=== PATIENT | female | born 1955 | race African-American/Black ===

== ENCOUNTER → 2016-09-04 | Outpatient (CLI) | payer MEDICARE, OTHER ==
[~2016-09-04] MED LIST: BACLOFEN10 MG ORAL; CAPTOPRIL50 MG PO; CARBAMAZEPINE300 MG ORAL; MAXZIDE 75 MG-1 EACH PO; NEURONTIN300 MG ORAL; NORCO 10-325 T1 EACH ORAL; VALIUM10 MG ORAL
--- NOTE | 2016-09-04 13:35 | Diagnostic Imaging Report ---
Indications: Abnormal liver function tests Technique: Transabdominal real-time grayscale and duplex Doppler imaging of the upper abdomen and retroperitoneum was performed. Findings: Comparison: None. Liver normal size and surface contour, diffusely increased parenchymal echogenicity. Focal area of relatively decreased echogenicity adjacent to gallbladder fossa. No other focal findings. Gallbladder unremarkable. No intraluminal stones or sludge. No mural thickening or adjacent fluid collections. Sonographic [place] sign not reported.. Bile ducts normal caliber. Common bile duct 4 mm. Pancreas visualized portions unremarkable. Spleen unremarkable. Right kidney unremarkable. Left kidney unremarkable. Abdominal aorta, intrahepatic portion of inferior vena cava patent, normal caliber. Duplex Doppler imaging demonstrates antegrade flow in splenic, portal, hepatic veins. No ascites. IMPRESSION: Hepatic steatosis with focal sparing adjacent to gallbladder fossa Remainder of exam unremarkable.
== END | disposition home or self-care (01) ==
LOC: ULS 10:14
DX: R79.89 Other specified abnormal findings of blood chemistry (principal); K76.0 Fatty (change of) liver, not elsewhere classified
CPT/HCPCS: 76700

== ENCOUNTER → 2016-11-20 | Outpatient (CLI) | payer MEDICARE, OTHER ==
--- NOTE | 2016-11-21 16:44 | Diagnostic Imaging Report ---
Indication: MASS Technique: Bilateral craniocaudal and mediolateral oblique views. Focused ultrasound of the left breast Comparison: 01/21/26 seen unilateral mammogram, 06/13/2015 bilateral mammogram Findings: The breasts demonstrate scattered fibroglandular densities. The areas of architectural distortion previously described in the right breast have been worked up, are less conspicuous currently, previously thought to be benign. Asymmetric parenchymal density in the left breast is less conspicuous currently, with also previously worked up and thought to be benign. Ovoid 9 mm asymmetry in the retroareolar left breast immediately lateral to midline remains stable. This is also demonstrated again on ultrasound, manifested is a 6 x 4 mm hypoechoic nodule which appears unchanged from the earlier exams. Impression: Stable left breast retroareolar nodule. One additional short interval six-month followup left breast mammogram and sonogram is recommended No new findings suspicious for malignancy BI-RADS category 3-probably benign Breast density BI-RADS type B. Note that the patient reports on the intake worksheet a history of constant breast pain. No imaging findings to explain this. Recommend further evaluation based on clinical findings
== END | disposition home or self-care (01) ==
LOC: MAMMO 12:57
DX: N63 Unspecified lump in breast (principal)
CPT/HCPCS: 76641; G0204; 77066

== ENCOUNTER 2017-01-16 05:41 | Inpatient (IN) | payer MEDICARE, OTHER ==
[2017-01-16] VITALS (18 sets, daily range): BP systolic 118–153; BP diastolic 63–84
[~2017-01-16] VITALS: Ht 162.6 cm; Wt 85.7 kg
[~2017-01-16 05:41] MED LIST changes: +cefOXitin Sod 2 GM in D5W 110 ML IVPB ONE
[2017-01-16] MEDS ORDERED: ZANTAC150 MG ORAL (06:53)
[2017-01-16] MEDS ORDERED: SIMETHICONE80 MG ORAL (06:53)
[2017-01-16] MEDS ORDERED: OMEPRAZOLE40 M1 ORAL (06:53)
[2017-01-16] MEDS ORDERED: METOPROLOL SUCC25 MG ORAL (06:53)
[2017-01-16] MEDS ORDERED: Ropivacaine 5mg/ml Vial 20ml INJ ONE (07:00)
[2017-01-16] MEDS ORDERED: cefOXitin 2gm Inj ONE (07:23)
[2017-01-16] MEDS ORDERED: fentaNYL 250mcg/5ml ONE (07:30)
[2017-01-16] MEDS ORDERED: Dexamethasone 4mg/ml vial ONE (07:30)
[2017-01-16] MEDS ORDERED: Metoclopramide 10mg/2ml Inj ONE (07:30)
[2017-01-16] MEDS ORDERED: Propofol 10mg/ml 20ml IV ONE (07:30)
[2017-01-16] MEDS ORDERED: Nimbex 2mg/ml Inj 10ML IVP ONE (07:30)
[2017-01-16] MEDS ORDERED: Lidocaine 1% MPF 10mg/ml 5ml ONE (07:30)
[2017-01-16] MEDS ORDERED: LR 1000ml ONE (07:30)
[2017-01-16] MEDS ORDERED: Midazolam 2mg/2ml Inj ONE (07:30)
[2017-01-16] MEDS ORDERED: NS Irrig 1000ml ONE (07:30)
[2017-01-16] MEDS ORDERED: Sterile Water Irrig 1000ml IRRIG ONE (07:30)
--- NOTE | 2017-01-16 07:33 | Pre-Procedure Note/Attestation ---
Pre-Procedure Note/Attestation Complete Prior to Procedure Planned Procedure: not applicable Procedure Narrative: Supracervical Hysterectomy, Bilateral Hysterectomy Indications for Procedure Pre-Operative Diagnosis: Uterine Fibroids Attestation I attest that I discussed the nature of the procedure; its benefits; risks and complications; and alternatives (and the risks and benefits of such alternatives ), prior to the procedure, with the patient (or the patient's legal sales representative consultant). I attest that, if there was a reasonable possibility of needing a blood transfusion, the patient (or the patient's legal sales representative consultant) was given the [facility] standardized written summary, pursuant to the [place] Blood Safety Act ([place] Health and Safety Code # 1645, as amended). I attest that I re-evaluated the patient just prior to the surgery and that there has been no change in the patient's H&P, except as documented below:NONE SHARITA ANGEL Jan 16, 2017 07:33
--- NOTE | 2017-01-16 07:49 | Short Stay Surgery H&P ---
History of Present Illness History of Present Illness HPI Renard Leon is a 61 year old female who was admitted on Jan 16, 2017 at 05:41 for Uterine Fibroids Patient experiences uterine cramping due to submucosal fibroid History of Maternal Ovarian CA Patient History Allergies: Uncoded Allergies: BANANAS (Allergy, Unknown, Rash, 10/24/15) PAST MEDICAL HISTORY: Past Surgeries: (1) delivery delivered Social History: Medication History Scheduled Metoprolol Succinate* (Metoprolol Succinate*), 25 MG ORAL DAILY, (Reported) Omeprazole (Omeprazole), 40 MG ORAL DAILY, (Reported) Ranitidine Hcl* (Zantac*), 150 MG ORAL DAILY, (Reported) Scheduled PRN Diazepam* (Valium*), 10 MG ORAL TWICE A WEEK PRN for ANXIETY, (Reported) Hydrocodone Bit/Acetaminophen 10-325* ([place] 10-325*), 1 TAB ORAL NEED PRN for For Pain, (Reported) Simethicone* (Simethicone*), 80 MG ORAL BID PRN for GAS PAIN, (Reported) Discontinued Medications Baclofen* (Baclofen*), 10 MG ORAL DA, (Reported) Discontinued Reason: Pt stopped taking med Captopril (Captopril), 50 MG PO, (Reported) Discontinued Reason: MD discontinued med Carbamazepine (Carbamazepine), 200 MG ORAL DA, (Reported) Discontinued Reason: MD discontinued med Gabapentin (Neurontin), 300 MG ORAL QOD, (Reported) Discontinued Reason: Pt stopped taking med Triamterene/Hydrochlorothiazid (Maxzide 75 Mg-50 Mg Tablet), 0.5 EACH PO DAILY, (Reported) Discontinued Reason: MD discontinued med Review of Systems Cardiovascular: Denies: CABG, CAD - stable, CHF, SC, angina, dysrhythmia, hypertension, no symptoms, other, peripheral vascular disease, rheumatic heart disease, see HPI, source of infx - skin, source of infx-indw cath, source of infx-prosthesis, valvular disease Respiratory: Denies: COPD, CPAP, URI, asthma, chronic bronchitis, home 02, no symptoms, other, pneumonia, see HPI, sleep apnea, tuberculosis Skeletal: Reports: osteroarthritis, spinal disc disease Gastrointestinal: Denies: gastro esophageal reflux disease, hepatitis A,B,C, hiatal hernia, jaundice, no symptoms, obesity, other, peptic ulcer disease, see HPI Genitourinary: Denies: BPH, UTI, dialysis, endstage renal disease, no symptoms , other, renal insufficiency, see HPI, urinary retention Neurologic: Denies: neuro muscular disease, neuropathy, no symptoms, other, see HPI, seizure, stroke/TIA Endocrine: Reports: diabetes - type 1, diabetes - type 2, no symptoms, other, post menopausal - Reports hot flashes for the last several months, see HPI, thyroid Hematologic: Denies: anemia, coagulopathy, no symptoms, other, prior transfusion, see HPI Physical Exam Vital Signs Last Vital Signs Date Time Temp Pulse Resp B/P Pulse Ox O2 Delivery O2 Flow Rate FiO2 01/16/17 06:55 97.2 60 18 134/78 Room Air EKG WNL Skin: normal HENT: normal Heart: normal Lungs: normal Abdomen: normal Extremities: normal Genitourinary: abnormal - Enlarged Uterus Plan Plan of Care Supracervical Hysterectomy, BSO Summary of Findings Submucosal Fibroid, Uterine Cramping, History of maternal Ovarian Cancer Final Diagnosis: Attestation Are the patient's medical conditions optimized for surgery? Attestation Response: yes SHARITA ANGEL Jan 16, 2017 07:49
[2017-01-16] MEDS ORDERED: LR 1000ml 1,000 ML IVLG SCH (08:08)
--- NOTE | 2017-01-16 08:08 | Anethesia Preoperative Eval ---
Anesthesia Pre-op PMH/ROS General Date of Evaluation: Jan 16, 2017 Anesthesiologist: Vignesh ASA Score: ASA 2 Mallampati Score Class I : Soft palate, uvula, fauces, pillars visible Class II: Soft palate, uvula, fauces visible Class III: Soft palate, base of uvula visible Class IV: Only hard plate visible Mallampati Classification: Class II Surgeon: Patricia Diagnosis: Uterine fibroids Surgical Procedure: Supracervical hysterectomy Anesthesia History: none Social History: current smoker - cigarettes and marijuana Family History: no anesthesia problems Allergies: Uncoded Allergies: BANANAS (Allergy, Unknown, Rash, 10/24/15) Medications: see eMAR Past Medical History Cardiovascular: Reports: HTN, arrhythmia - irregular heartbeat as per patient, Denies: CAD, [place], other, valve dz Pulmonary: Denies: COPD, DOV, asthma, other Gastrointestinal/Genitourinary: Reports: GERD, Denies: CRI, ESRD, other Neurologic/Psychiatric: Reports: depression/anxiety, Denies: CVA, TIA, dementia, other Endocrine: Denies: DM, hypothyroidism, other, steroids HEENT: Denies: [place] (L), [place] (R), cataract (L), cataract (R), glaucoma, other Hematology/Immune: Denies: DVT, anemia, bleeding disorder, other Musculoskeletal/Integumentary: Reports: other - LBP, sciatica, Denies: DDD, DJD, OA, RA, edema PSxH Narrative: c/s, right shoulder sx Anesthesia Pre-op Phys. Exam Physician Exam Last Vital Signs Date Time Temp Pulse Resp B/P Pulse Ox O2 Delivery O2 Flow Rate FiO2 01/16/17 06:55 97.2 60 18 134/78 Room Air Constitutional: NAD Cardiovascular: RRR Respiratory: CTA Airway Exam Mallampati Score: Class I MO: full ROM: full Teeth: intact - bottoms Dentures: upper Anesthesia Pre-op A/P Labs see chart Studies Pre-op Studies: EKG - sr Risk Assessment & Plan Assessment: ASA II Plan: GA-ETT Status Change Before Surgery: No Pre-Antibiotics Drug: Cefoxitin 2g Given Within 1 Hr of Incision: Yes Time Given: 07:45 SHIVAM PEDRO M.D. Jan 16, 2017 08:08
[2017-01-16] MEDS ORDERED: NS Irrig 1000ml IRRIG ONE (08:14)
[2017-01-16] MEDS ORDERED: fentaNYL 100 mcg/2 mL IV PRN (08:15)
[2017-01-16] MEDS ORDERED: Metoclopramide 10mg/2ml Inj IVP PRN (08:15)
[2017-01-16] MEDS ORDERED: Midazolam 2mg/2ml Inj IVP PRN (08:15)
[2017-01-16] MEDS ORDERED: Ketorolac 30mg Inj IV PRN (08:15)
[2017-01-16] MEDS ORDERED: LORazepam Inj 2mg/ml 1ml IV PRN (08:15)
[2017-01-16] MEDS ORDERED: DiphenhydrAMINE 50mg/ml Inj IVP PRN (08:15)
[2017-01-16] MEDS ORDERED: Surgicel 4in x 8in TOPIC ONE (08:59)
--- NOTE | 2017-01-16 10:07 | Immediate Post-Op Evaluation ---
Immediate Post-Op Evalulation Immediate Post-Op Evalulation Procedure: Supracervical hysterectomy with BSO Date of Evaluation: Jan 16, 2017 Time of Evaluation: 10:04 IV Fluids: 1.6L Blood Products: 0 Estimated Blood Loss: 100 Urinary Output: 300 Blood Pressure Systolic: 153 Blood Pressure Diastolic: 78 Pulse Rate: 76 Respiratory Rate: 16 O2 Sat by Pulse Oximetry: 99 Temperature (Fahrenheit): 97.8 Pain Score (1-10): 0 Nausea: No Vomiting: No Complications 0 Patient Status: awake, reacts, patent, none Hydration Status: adequate Drug: Cefoxitin 2g Given Within 1 Hr of Incision: Yes Time Given: 07:45 SHIVAM PEDRO M.D. Jan 16, 2017 10:07
--- NOTE | 2017-01-16 10:32 | Brief Operative Note ---
Immediate Post Operative Note Operative Note Pre-op Diagnosis: Uterine Fibroids Procedure: Supracervical Hysterectomy, BSO Post-op Diagnosis: same as pre-op Surgeon: Sharita Angel MD Weeder Thinner: Nithya Oscar MD Anesthesiologist: Victorino Gillette MD Anesthesia: general Specimen: yes - Uterus, Ovaries and Tubes Complications: none Condition: stable Fluids: LR@100 CC/hr Estimated Blood Loss: volume - 200 CC Implant(s) used?: No SHARITA ANGEL Jan 16, 2017 10:32
[2017-01-16] MEDS: Hydromorphone 0.5mg/0.5ml inj IVP PRN ×2 (11:17→13:00)
--- NOTE | 2017-01-16 13:00 | Operative Note - Dictated ---
DATE OF OPERATION: 01/16/2017 PREOPERATIVE DIAGNOSES: 1. Uterine fibroid. 2. Uterine cramping. 3. Maternal history of ovarian cancer. POSTOPERATIVE DIAGNOSES: 1. Uterine fibroid. 2. Uterine cramping. 3. Maternal history of ovarian cancer. PROCEDURE PERFORMED: Supracervical hysterectomy, bilateral salpingo-oophorectomy. SURGEON: Randall Gomez M.D. GI TECHNICIAN SURGEON: Nithya Oscar M.D. ANESTHESIA: General endotracheal. ANESTHESIOLOGIST: Halina Gillette M.D. PROCEDURE IN DETAIL: After all the appropriate consents were signed, the patient was brought to the operative room, placed on the table in supine position. Procedure then began with making a Pfannenstiel incision. The incision was carried through subcutaneous tissue until the fascia was reached. The fascial incision was also made and extended bilaterally to expose the rectus muscle. The muscle was reflected both inferiorly and superiorly to expose the peritoneum. Peritoneum was entered sharply and bowel could be identified with uterus being deep in the pelvis. There were some adhesions along the left side of the uterus. At this time, a self-retaining retractor was placed and bowel was packed. The procedure began with elevating the uterus from pelvis and right round ligament was clamped, cut, and suture ligated. The broad ligament was incised and the bladder flap was developed. There were some additional adhesions in the bladder and additional reflection of the bladder, which needed to be adhesiolysed and after that was completed, the procedure continued on the left side where the round ligament could not be fully visualized. At this time, adhesiolysis was required to visualize the round ligament. Once this was completed, rounds were clamped, cut, and suture ligated. The procedure continued with developing of the bladder flap on the left side and entire bladder was pushed down the cervix to visualize the area of the uterine vessels. The uterines were clamped, cut, and suture ligated. The procedure then continued with progression of the removing of ligaments. The cardinal ligaments were clamped, cut, and suture ligated bilaterally exposing the cervix. At this time, the cervix was now cut and the uterus was removed from the field to be submitted to pathology for evaluation. The patient was now once again evaluated and the left tube and ovary were still attached to the left pelvic sidewall. The ovary was elevated and the infundibulopelvic ligament was clamped, cut, and suture ligated doubly. At this time, the pelvis was irrigated. Complete hemostasis was achieved in the pelvis. The self-retaining retractor was removed. Laps were removed from the abdomen and lap count was correct. The peritoneum was now closed using #0 Vicryl suture in a running fashion. The muscle was approximated in the midline. The fascia was closed using #0 Vicryl suture bilaterally. Plain suture was placed in the subcutaneous tissue to approximate at the midline. The skin was closed using stainless steel andrea. Randall Gomez M.D. DR: STEFF JOB#: [id number] CC:
[2017-01-16] MEDS ORDERED: Rate Change PCA 1 Each MISC PRN ×3 (14:30→15:00)
[2017-01-16] MEDS ORDERED: PCA HYDROmorphone 1mg/ml 30 ML IV PRN (14:30)
[2017-01-16] MEDS: LR 1000ml 1,000 ML IV SCH (15:23)
[2017-01-16] MEDS ORDERED: PCA shift volume MISC SCH ×2 (19:00)
[2017-01-16] MEDS: PCA shift volume MISC SCH (19:14)
[2017-01-17] VITALS: BP 126/65
[2017-01-17] MEDS: LR 1000ml 1,000 ML IV SCH ×3 (01:54→20:00)
[2017-01-17 04:00] VITALS: BP 117/58
[2017-01-17 06:39] LABS: BASOPHILS % (AUTO) 0.4 % (0.0-2.0); EOSINOPHILS % (AUTO) 0.1 % (0.0-3.0); LYMPHOCYTES % (AUTO) 20.4 % (20.0-45.0); MEAN CORPUSCULAR HEMOGLOBIN 34.4 PG (27.0-31.0); MEAN CORPUSCULAR HGB CONC 33.9 G/DL (32.0-36.0); MEAN CORPUSCULAR VOLUME 102 FL (80-99); MEAN PLATELET VOLUME 9.2 FL (6.5-10.1); MONOCYTES % (AUTO) 12.1 % (1.0-10.0); NEUTROPHILS % (AUTO) 67.1 % (45.0-75.0); PLATELET COUNT 162 K/UL (150-450); RED BLOOD COUNT 3.04 M/UL (4.20-5.40); RED CELL DISTRIBUTION WIDTH 12.8 % (11.6-14.8); WHITE BLOOD COUNT 10.9 K/UL (4.8-10.8)
[2017-01-17 06:47] LABS: ANION GAP 12 (5-15); CALCIUM 8.9 mg/dL (8.6-10.2); CARBON DIOXIDE 27 mEQ/L (20-30); CHLORIDE 97 mEQ/L (98-107); CREATININE 0.8 mg/dL (0.5-0.9); GLOMERULAR FILTRATION RATE > 60 mL/min (>60); HEMOLYSIS 3; MAGNESIUM 1.6 mg/dL (1.7-2.5); PHOSPHORUS 4.3 mg/dL (2.5-4.8); POTASSIUM 4.3 mEQ/L (3.4-4.9); SODIUM 136 mEQ/L (135-145)
[2017-01-17] MEDS: PCA shift volume MISC SCH (07:14)
[2017-01-17 08:00] VITALS: BP 118/59
[2017-01-17 08:26] LABS: IONIZED CALCIUM 1.18 mmol/L (1.10-1.35)
[2017-01-17] MEDS: Simethicone 80mg tab ORAL PRN ×2 (10:05→22:30)
[2017-01-17] MEDS ORDERED: Ketorolac 60mg Inj IM ONE (11:30)
[2017-01-17] MEDS ORDERED: Ketorolac 30mg Inj IV ONE (11:30)
[2017-01-17 12:00] VITALS: BP 142/75
[2017-01-17 16:00] VITALS: BP 142/78
[2017-01-17] MEDS: Ketorolac 30mg Inj IV SCH ×2 (17:25→23:36)
--- NOTE | 2017-01-17 18:24 | 48 Hour Post Anesthesia Eval ---
Post Anesthesia Evaluation Procedure: Supracervical hysterectomy with BSO Date of Evaluation: Jan 17, 2017 Time of Evaluation: 18:23 Blood Pressure Systolic: 142 0: 58 Pulse Rate: 72 Respiratory Rate: 22 Temperature (Fahrenheit): 97.6 O2 Sat by Pulse Oximetry: 98 Airway: patent Nausea: No Vomiting: No Pain Intensity: 3 Hydration Status: adequate Cardiopulmonary Status: stable Mental Status/LOC: patient returned to baseline Follow-up Care/Observations: n/a Post-Anesthesia Complications: none Follow-up care needed: N/A MAMIE GROSSMAN M.D. Jan 17, 2017 18:24
[2017-01-17] MEDS ORDERED: Norco 5mg/325mg tab ORAL PRN (19:45)
[2017-01-17] MEDS: Norco 10mg/325mg tab ORAL PRN (19:54)
[2017-01-17 20:00] VITALS: BP 158/69
[2017-01-18] MEDS: Zolpidem 5mg tab ORAL PRN (00:02)
[2017-01-18 00:25] VITALS: BP 140/79
[2017-01-18] MEDS: Norco 10mg/325mg tab ORAL PRN ×4 (03:59→22:18)
[2017-01-18] MEDS: LR 1000ml 1,000 ML IV SCH ×2 (06:23→15:21)
[2017-01-18] MEDS: Ketorolac 30mg Inj IV SCH ×4 (06:23→23:45)
[2017-01-18 06:40] VITALS: BP 118/68
[2017-01-18 08:00] VITALS: BP 115/58
[2017-01-18] MEDS: Docusate 100mg cap ORAL SCH ×3 (09:17→18:23)
[2017-01-18] MEDS: Simethicone 80mg tab ORAL PRN ×2 (11:14→18:23)
[2017-01-18 12:00] VITALS: BP 145/76
[2017-01-18 16:00] VITALS: BP 147/88
[2017-01-18] MEDS ORDERED: LR 1000ml ONE (18:08)
[2017-01-18 20:00] VITALS: BP 138/78
[2017-01-19] VITALS: BP 131/72
[2017-01-19] MEDS: Zolpidem 5mg tab ORAL PRN (00:57)
[2017-01-19] MEDS: LR 1000ml 1,000 ML IV SCH (02:11)
[2017-01-19] MEDS: Norco 10mg/325mg tab ORAL PRN ×4 (02:31→22:45)
[2017-01-19 04:00] VITALS: BP 150/83
[2017-01-19] MEDS: Ketorolac 30mg Inj IV SCH ×3 (05:28→17:30)
[2017-01-19 08:03] VITALS: BP 129/89
[2017-01-19] MEDS ORDERED: OMEPRAZOLE40 M1 ORAL (08:58)
--- NOTE | 2017-01-19 09:00 | Discharge Instructions ---
Discharge Instructions Discharge Instructions Follow up with: dr burgos Diet: 2 GM sodium (low sodium) Resume Normal Activity?: Yes Activity: light activity For Surgical Patients Clean and Dry: surgical site Dressing Care: keep dry and clean May shower: Yes Contact your physician for: bleeding, pain, tenderness, redness, yellowish discharge in the op. site For Congestive Heart Failure Reminder Report to your physician any weight gain of 5 pounds or more in one week. BHAVANI MCGINNIS Jan 19, 2017 09:00
--- NOTE | 2017-01-19 09:07 | General Surgery Progress Note ---
General Surgery-Progress Note Subjective Symptoms: pain same, voiding well, passing flatus Objective Last 24 Hour Vital Signs Date Time Temp Pulse Resp B/P Pulse Ox O2 Delivery O2 Flow Rate FiO2 01/19/17 08:03 97.8 71 20 129/89 96 Room Air 01/19/17 04:00 98.1 75 16 150/83 97 Room Air 01/19/17 00:00 97.7 19 131/72 98 Room Air 01/18/17 20:00 97.9 73 17 138/78 97 Room Air 01/18/17 16:00 98.1 81 20 147/88 99 Room Air 01/18/17 12:00 97.2 68 18 145/76 98 Room Air I&O Intake and Output 01/18/17 01/19/17 19:00 07:00 Intake Total 2040 ml 1420 ml Balance 2040 ml 1420 ml Intake Oral 840 ml 320 ml IV Total 1200 ml 1100 ml # Voids 3 3 # Bowel Movements 1 Wound: clean, intact Drains: none Cardiovascular: RSR Respiratory: clear Abdomen: soft Extremities: edema BHAVANI MCGINNIS Jan 19, 2017 09:07
--- NOTE | 2017-01-19 09:09 | Discharge Summary ---
Discharge Summary Hospital Course Date of Admission Jan 16, 2017 at 05:41 Date of Discharge 01/20/2017 Admitting Diagnosis symptomatic fibroids MARIOLA Leon is a 61 year old female who was admitted on Jan 16, 2017 at 05:41 for Uterine Fibroids Procedures hysterectomy Hospital Course voided/ ambulated/ passed gas Discharge Condition Upon Discharge: stable Discharge Disposition Patient was discharged to home Discharge Diagnoses: Discharge Instructions Discharge Instructions Follow up with: dr burgos Activity: light activity For Surgical Patients Clean and Dry: surgical site Dressing Care: keep dry and clean May shower: Yes Contact your physician for: bleeding, pain, tenderness, redness, yellowish discharge in the op. site BHAVANI MCGINNIS Jan 19, 2017 09:09
[2017-01-19] MEDS ORDERED: Metoprolol 25mg tab ORAL ONE (09:15)
[2017-01-19] MEDS: Docusate 100mg cap ORAL SCH ×3 (09:24→17:30)
[2017-01-19] MEDS: Simethicone 80mg tab ORAL PRN ×2 (12:19→22:43)
[2017-01-19 12:20] VITALS: BP 149/78
[2017-01-19 15:59] VITALS: BP 145/78
[2017-01-19 20:20] VITALS: BP 131/66
[2017-01-20] MEDS: Zolpidem 5mg tab ORAL PRN (00:05)
[2017-01-20] MEDS: Ketorolac 30mg Inj IV SCH ×3 (00:05→13:02)
[2017-01-20 00:39] VITALS: BP 133/71
[2017-01-20 04:22] VITALS: BP 130/75
[2017-01-20] MEDS: Norco 10mg/325mg tab ORAL PRN ×2 (05:01→08:57)
[2017-01-20 08:00] VITALS: BP 167/87
[2017-01-20] MEDS: Docusate 100mg cap ORAL SCH ×2 (08:56→13:03)
[2017-01-20 12:00] VITALS: BP 139/90
== END 2017-01-20 15:34 | disposition home or self-care (01) | DRG 743 ==
LOC: SDSOVERFLO 05:41 → 3E 14:00
PROC: 0UT70ZZ Resection of Bilateral Fallopian Tubes, Open Approach (ICD-10-PCS; principal; 2017-01-16 07:30)
PROC: 0UT20ZZ Resection of Bilateral Ovaries, Open Approach (ICD-10-PCS; principal; 2017-01-16 07:30)
PROC: 0UT90ZZ Resection of Uterus, Open Approach (ICD-10-PCS; principal; 2017-01-16 07:30)
DX: D25.0 Submucous leiomyoma of uterus (principal); E11.9 Type 2 diabetes mellitus without complications; M19.90 Unspecified osteoarthritis, unspecified site; F17.210 Nicotine dependence, cigarettes, uncomplicated
CPT/HCPCS: 36415; 80048; 82330; 83735; 84100; 85025; 86850; 86900; 86901; 87081; 94003; 94150; J2250; J2405; J2765

== ENCOUNTER 2017-08-15 13:40 | Inpatient (IN) | payer MEDICARE, OTHER ==
[~2017-08-15] VITALS: Ht 162.6 cm; Wt 89.4 kg
[~2017-08-15 13:40] MED LIST changes: +Ketorolac 30mg Inj IV PRN; +METOPROLOL SUCC25 MG ORAL; +OMEPRAZOLE40 M1 ORAL; +SIMETHICONE80 MG ORAL; +ZANTAC150 MG ORAL; -cefOXitin Sod 2 GM in D5W 110 ML IVPB ONE
[2017-08-15] MEDS ORDERED: Nitroglycerin Subl 0.4mg tab SL PRN ×2 (14:15→22:45)
[2017-08-15] MEDS ORDERED: LISINOPRIL20 MG ORAL (14:46)
[2017-08-15 15:07] VITALS: BP 156/81
[2017-08-15 15:12] LABS: BASOPHILS % (AUTO) 2.1 % (0.0-2.0); EOSINOPHILS % (AUTO) 1.3 % (0.0-3.0); HEMATOCRIT 42.3 % (37.0-47.0); HEMOGLOBIN 14.1 G/DL (12.0-16.0); LYMPHOCYTES % (AUTO) 47.3 % (20.0-45.0); MEAN CORPUSCULAR VOLUME 98 FL (80-99); MONOCYTES % (AUTO) 10.2 % (1.0-10.0); NEUTROPHILS % (AUTO) 39.1 % (45.0-75.0); PLATELET COUNT 207 K/UL (150-450); RED BLOOD COUNT 4.32 M/UL (4.20-5.40); RED CELL DISTRIBUTION WIDTH 12.9 % (11.6-14.8); WHITE BLOOD COUNT 5.6 K/UL (4.8-10.8)
[2017-08-15 15:17] LABS: ANION GAP 11 mmol/L (5-15); BLOOD UREA NITROGEN 12 mg/dL (7-18); CALCIUM 9.6 MG/DL (8.5-10.1); CARBON DIOXIDE 25 MMOL/L (21-32); CHLORIDE 104 MMOL/L (98-107); CREATININE 0.9 MG/DL (0.55-1.30); POTASSIUM 3.6 MMOL/L (3.5-5.1); SODIUM 140 MMOL/L (136-145)
--- NOTE | 2017-08-15 15:22 | Emergency Room Report ---
History of Present Illness General Chief Complaint: Chest Pain Source: Patient Present Illness HPI 62-year-old female presents ED complaining of chest pain x3 days. Midsternal, pressure, 7/10, with tingling sensation down the left arm. Denies shortness of breath. Had x-rays and blood work done a few days ago but she does not have results. Denies smoking or drug use. [employer] is Dr. Hanson. No other aggravating relieving factors. Denies any other associated symptom Allergies: Uncoded Allergies: BANANAS (Allergy, Unknown, Rash, 10/24/15) Patient History Past Medical History: HTN, CHF, GERD, psych hx Past Surgical History: none Pertinent Family History: none Social History: Denies: smoking, alcohol use, drug use Now: No Immunizations: UTD Reviewed Nursing Documentation: PMH: Agreed, PSxH: Agreed Nursing Documentation-PMH Past Medical History: No History, Except For Hx Cardiac Problems: Yes - CHF Hx Hypertension: Yes Hx Pacemaker: No Hx Asthma: No Hx COPD: No Hx Diabetes: No Hx Cancer: No Hx Gastrointestinal Problems: Yes - gastritis Hx Dialysis: No History Of Psychiatric Problem: Yes - Depression Hx Neurological Problems: No Hx Cerebrovascular Accident: No Hx Seizures: No Review of Systems All Other Systems: negative except mentioned in HPI Physical Exam Vital Signs Date Time Temp Pulse Resp B/P (MAP) Pulse Ox O2 Delivery O2 Flow Rate FiO2 08/15/17 13:43 98.8 74 15 198/105 95 Room Air Sp02 EP Interpretation: reviewed, normal General Appearance: no apparent distress, alert, GCS 15, non-toxic Head: normocephalic, atraumatic Eyes: bilateral eye normal inspection, bilateral eye PERRL ENT: hearing grossly normal, normal pharynx, no angioedema, normal voice Neck: full range of motion, supple/symm/no masses Respiratory: lungs clear, normal breath sounds, speaking full sentences, other - reproducible Cardiovascular #1: regular rate, rhythm, no edema Cardiovascular #2: 2+ carotid (R), 2+ carotid (L), 2+ radial (R), 2+ radial (L) , 2+ dorsalis pedis (R), 2+ dorsalis pedis (L) Gastrointestinal: normal bowel sounds, non tender, soft, non-distended, no guarding, no rebound Rectal: deferred Genitourinary: normal inspection, no CVA tenderness Musculoskeletal: back normal, gait/station normal, normal range of motion, non- tender Neurologic: alert, oriented x3, responsive, motor strength/tone normal, sensory intact, speech normal Psychiatric: judgement/insight normal, memory normal, mood/affect normal, no suicidal/homicidal ideation Reflexes: 3+ bicep (R), 3+ bicep (L), 3+ tricep (R), 3+ tricep (L), 3+ knee (R) , 3+ knee (L) Skin: normal color, no rash, warm/dry, well hydrated Lymphatic: no adenopathy Medical Decision Making Diagnostic Impression: Primary Impression: ACS (acute coronary syndrome) ER Course Hospital Course 62-year-old female presents ED complaining of left-sided chest pain, shortness of breath Differential diagnoses include: HI/unstable angina, contusion, muscle strain, PTX, rib fracture Clinical course Patient placed on stretcher. on manager pest. After initial history and physical I ordered labs, EKG, chest x-ray, NTG labs reviewed- no leukocytosis, hb/hct stable, electrolytes ok, trop negative EKG - NSR, no acute ischemic changes interpreted by me Chest x-ray- no acute process Patient states pain improved after nitroglycerin. Given presentation and risk factors patient should be admitted. discussed case with cardiology Dr Hanson and he agrees to admission given aspirin Case discussed with Dr. Mtz and he agreed to accept the patient to his service for further care and support I. I feel this is a highly complex case requiring extensive working including EKG/Rhythm strip, Xray/CT/US, Blood/urine lab work, repeat exams while in ED, and administration of strong opiates/narcotics for pain control, admission to hospital or close patient follow up. Diagnosis - ACS admitted to telemetry in serious condition Labs Test 08/15/17 14:30 08/15/17 15:52 White Blood Count 5.6 K/UL (4.8-10.8) Red Blood Count 4.32 M/UL (4.20-5.40) Hemoglobin 14.1 G/DL (12.0-16.0) Hematocrit 42.3 % (37.0-47.0) Mean Corpuscular Volume 98 FL (80-99) Mean Corpuscular Hemoglobin 32.5 PG (27.0-31.0) Mean Corpuscular Hemoglobin Concent 33.2 G/DL (32.0-36.0) Red Cell Distribution Width 12.9 % (11.6-14.8) Platelet Count 207 K/UL (150-450) Mean Platelet Volume 7.8 FL (6.5-10.1) Neutrophils (%) (Auto) 39.1 % (45.0-75.0) Lymphocytes (%) (Auto) 47.3 % (20.0-45.0) Monocytes (%) (Auto) 10.2 % (1.0-10.0) Eosinophils (%) (Auto) 1.3 % (0.0-3.0) Basophils (%) (Auto) 2.1 % (0.0-2.0) Sodium Level 140 MMOL/L (136-145) Potassium Level 3.6 MMOL/L (3.5-5.1) Chloride Level 104 MMOL/L (98-107) Carbon Dioxide Level 25 MMOL/L (21-32) Anion Gap 11 mmol/L (5-15) Blood Urea Nitrogen 12 mg/dL (7-18) Creatinine 0.9 MG/DL (0.55-1.30) Estimat Glomerular Filtration Rate > 60 mL/min (>60) Glucose Level 71 MG/DL (74-106) Calcium Level 9.6 MG/DL (8.5-10.1) Total Bilirubin 0.4 MG/DL (0.2-1.0) Aspartate Amino Transf (AST/SGOT) 79 U/L (15-37) Alanine Aminotransferase (ALT/SGPT) 80 U/L (12-78) Alkaline Phosphatase 78 U/L (46-116) Total Creatine Kinase 140 U/L (26-308) Creatine Kinase MB 1.9 NG/ML (0.0-3.6) Creatine Kinase MB Relative Index 1.3 Troponin I 0.000 ng/mL (0.000-0.056) Pro-B-Type Natriuretic Peptide 129 pg/mL (0-125) Total Protein 7.9 G/DL (6.4-8.2) Albumin 3.9 G/DL (3.4-5.0) Globulin 4.0 g/dL Albumin/Globulin Ratio 1.0 (1.0-2.7) Urine Opiates Screen Negative (NEGATIVE) Urine Barbiturates Screen Negative (NEGATIVE) Phencyclidine (PCP) Screen Negative (NEGATIVE) Urine Amphetamines Screen Negative (NEGATIVE) Urine Benzodiazepines Screen Negative (NEGATIVE) Urine Cocaine Screen Negative (NEGATIVE) Urine Marijuana (THC) Screen Positive (NEGATIVE) EKG Diagnostic Results Rate: normal Rhythm: NSR ST Segments: no acute changes ASA given to the pt in ED: Yes Rhythm Strip Diag. Results EP Interpretation: yes Rhythm: NSR, no PVC's, no ectopy Chest X-Ray Diagnostic Results Chest X-Ray Diagnostic Results : Chest X-Ray Ordered: Yes # of Views/Limited/Complete: 1 View Indication: Chest Pain EP Interpretation: Yes Interpretation: no consolidation, no effusion, no pneumothorax, no acute cardiopulmonary disease, other - cardiomegaly Impression: No acute disease Electronically Signed by: Electronically signed by Brian Chambers MD Last Vital Signs Date Time Temp Pulse Resp B/P (MAP) Pulse Ox O2 Delivery O2 Flow Rate FiO2 08/15/17 15:07 98.1 61 25 156/81 100 Room Air Status: improved Disposition: ADMITTED INPATIENT Condition: Serious BRIAN CHAMBERS M.D. Aug 15, 2017 15:22
[2017-08-15 15:31] LABS: ALANINE AMINOTRANSFERASE 80 U/L (12-78); ALBUMIN 3.9 G/DL (3.4-5.0); ALKALINE PHOSPHATASE 78 U/L (46-116); ASPARTATE AMINO TRANSFERASE 79 U/L (15-37); BILIRUBIN,TOTAL 0.4 MG/DL (0.2-1.0); CKMB 1.9 NG/ML (0.0-3.6); CREATINE KINASE 140 U/L (26-308)
--- NOTE | 2017-08-15 17:31 | Diagnostic Imaging Report ---
Indication: Pain Technique: XRAY Chest 1v Comparison: 10/30/2015 Findings: Heart size and mediastinal contours are likely within normal limits given technique and low lung volumes. There is no focal consolidation, pneumothorax or pleural effusion. Osseous structures demonstrate no acute abnormality. Impression: No radiographic evidence of acute cardiopulmonary disease.
--- NOTE | 2017-08-15 17:35 | Cardiology Progress Note ---
Assessment/Plan Assessment/Plan The patient is seen and examined, full consult note will be dictated shortly. Objective Last 24 Hour Vital Signs Date Time Temp Pulse Resp B/P (MAP) Pulse Ox O2 Delivery O2 Flow Rate FiO2 08/15/17 15:07 98.1 61 25 156/81 100 Room Air 08/15/17 14:30 172/86 08/15/17 13:45 74 15 Room Air 08/15/17 13:43 98.8 74 15 198/105 95 Room Air Laboratory Tests Test 08/15/17 14:30 08/15/17 15:52 White Blood Count 5.6 K/UL (4.8-10.8) Red Blood Count 4.32 M/UL (4.20-5.40) Hemoglobin 14.1 G/DL (12.0-16.0) Hematocrit 42.3 % (37.0-47.0) Mean Corpuscular Volume 98 FL (80-99) Mean Corpuscular Hemoglobin 32.5 PG (27.0-31.0) H Mean Corpuscular Hemoglobin Concent 33.2 G/DL (32.0-36.0) Red Cell Distribution Width 12.9 % (11.6-14.8) Platelet Count 207 K/UL (150-450) Mean Platelet Volume 7.8 FL (6.5-10.1) Neutrophils (%) (Auto) 39.1 % (45.0-75.0) L Lymphocytes (%) (Auto) 47.3 % (20.0-45.0) H Monocytes (%) (Auto) 10.2 % (1.0-10.0) H Eosinophils (%) (Auto) 1.3 % (0.0-3.0) Basophils (%) (Auto) 2.1 % (0.0-2.0) H Sodium Level 140 MMOL/L (136-145) Potassium Level 3.6 MMOL/L (3.5-5.1) Chloride Level 104 MMOL/L (98-107) Carbon Dioxide Level 25 MMOL/L (21-32) Anion Gap 11 mmol/L (5-15) Blood Urea Nitrogen 12 mg/dL (7-18) Creatinine 0.9 MG/DL (0.55-1.30) Estimat Glomerular Filtration Rate > 60 mL/min (>60) Glucose Level 71 MG/DL (74-106) L Calcium Level 9.6 MG/DL (8.5-10.1) Total Bilirubin 0.4 MG/DL (0.2-1.0) Aspartate Amino Transf (AST/SGOT) 79 U/L (15-37) H Alanine Aminotransferase (ALT/SGPT) 80 U/L (12-78) H Alkaline Phosphatase 78 U/L (46-116) Total Creatine Kinase 140 U/L (26-308) Creatine Kinase MB 1.9 NG/ML (0.0-3.6) Creatine Kinase MB Relative Index 1.3 Troponin I 0.000 ng/mL (0.000-0.056) Pro-B-Type Natriuretic Peptide 129 pg/mL (0-125) H Total Protein 7.9 G/DL (6.4-8.2) Albumin 3.9 G/DL (3.4-5.0) Globulin 4.0 g/dL Albumin/Globulin Ratio 1.0 (1.0-2.7) Urine Opiates Screen Negative (NEGATIVE) Urine Barbiturates Screen Negative (NEGATIVE) Phencyclidine (PCP) Screen Negative (NEGATIVE) Urine Amphetamines Screen Negative (NEGATIVE) Urine Benzodiazepines Screen Negative (NEGATIVE) Urine Cocaine Screen Negative (NEGATIVE) Urine Marijuana (THC) Screen Positive (NEGATIVE) CRYSTAL SANDERSON Aug 15, 2017 17:35
[2017-08-15 18:00] VITALS: BP 173/80
[2017-08-15] MEDS ORDERED: VITAMIN E400 UNI6 PO ×2 (18:09)
[2017-08-15] MEDS ORDERED: ELIQUIS5 MG PO (18:09)
[2017-08-15] MEDS ORDERED: FISH OIL 1,0001 EAC5 ORAL (18:09)
[2017-08-15] MEDS ORDERED: BACLOFEN10 MG ORAL (18:09)
[2017-08-15] MEDS ORDERED: VITAMIN D35000 UNIT PO (18:09)
[2017-08-15] MEDS ORDERED: Morphine Sulfate 4mg/ml Inj IVP ONE (19:00)
[2017-08-15 19:30] VITALS: BP 160/80
[2017-08-15 20:00] VITALS: BP 170/84
[2017-08-15 21:10] VITALS: BP 205/111
[2017-08-15] MEDS ORDERED: Morphine Sulfate 2mg/ml Inj IVP PRN (22:45)
[2017-08-15] MEDS ORDERED: Albuterol/Ipratropium 3ml neb HHN PRN (22:45)
[2017-08-15] MEDS ORDERED: dilTIAZem HCl 25mg/5ml Inj IV PRN (22:45)
[2017-08-15] MEDS ORDERED: Enalaprilat 2.5mg/2ml Inj IV PRN (22:45)
--- NOTE | 2017-08-15 23:59 | Cardiology Progress Note ---
Assessment/Plan Assessment/Plan The patient is seen and examined, full consult note will be dictated shortly. Objective Last 24 Hour Vital Signs Date Time Temp Pulse Resp B/P (MAP) Pulse Ox O2 Delivery O2 Flow Rate FiO2 08/15/17 22:46 201/111 08/15/17 20:00 97.0 72 20 170/84 100 08/15/17 19:16 182/81 08/15/17 18:00 98.3 64 20 173/80 98 Room Air 08/15/17 15:07 98.1 61 25 156/81 100 Room Air 08/15/17 14:30 172/86 08/15/17 13:45 74 15 Room Air 08/15/17 13:43 98.8 74 15 198/105 95 Room Air Laboratory Tests Test 08/15/17 14:30 08/15/17 15:52 08/15/17 22:45 White Blood Count 5.6 K/UL (4.8-10.8) Red Blood Count 4.32 M/UL (4.20-5.40) Hemoglobin 14.1 G/DL (12.0-16.0) Hematocrit 42.3 % (37.0-47.0) Mean Corpuscular Volume 98 FL (80-99) Mean Corpuscular Hemoglobin 32.5 PG (27.0-31.0) H Mean Corpuscular Hemoglobin Concent 33.2 G/DL (32.0-36.0) Red Cell Distribution Width 12.9 % (11.6-14.8) Platelet Count 207 K/UL (150-450) Mean Platelet Volume 7.8 FL (6.5-10.1) Neutrophils (%) (Auto) 39.1 % (45.0-75.0) L Lymphocytes (%) (Auto) 47.3 % (20.0-45.0) H Monocytes (%) (Auto) 10.2 % (1.0-10.0) H Eosinophils (%) (Auto) 1.3 % (0.0-3.0) Basophils (%) (Auto) 2.1 % (0.0-2.0) H Sodium Level 140 MMOL/L (136-145) Potassium Level 3.6 MMOL/L (3.5-5.1) Chloride Level 104 MMOL/L (98-107) Carbon Dioxide Level 25 MMOL/L (21-32) Anion Gap 11 mmol/L (5-15) Blood Urea Nitrogen 12 mg/dL (7-18) Creatinine 0.9 MG/DL (0.55-1.30) Estimat Glomerular Filtration Rate > 60 mL/min (>60) Glucose Level 71 MG/DL (74-106) L Calcium Level 9.6 MG/DL (8.5-10.1) Total Bilirubin 0.4 MG/DL (0.2-1.0) Aspartate Amino Transf (AST/SGOT) 79 U/L (15-37) H Alanine Aminotransferase (ALT/SGPT) 80 U/L (12-78) H Alkaline Phosphatase 78 U/L (46-116) Total Creatine Kinase 140 U/L (26-308) Creatine Kinase MB 1.9 NG/ML (0.0-3.6) Creatine Kinase MB Relative Index 1.3 Troponin I 0.000 ng/mL (0.000-0.056) Pending Pro-B-Type Natriuretic Peptide 129 pg/mL (0-125) H Total Protein 7.9 G/DL (6.4-8.2) Albumin 3.9 G/DL (3.4-5.0) Globulin 4.0 g/dL Albumin/Globulin Ratio 1.0 (1.0-2.7) Urine Opiates Screen Negative (NEGATIVE) Urine Barbiturates Screen Negative (NEGATIVE) Phencyclidine (PCP) Screen Negative (NEGATIVE) Urine Amphetamines Screen Negative (NEGATIVE) Urine Benzodiazepines Screen Negative (NEGATIVE) Urine Cocaine Screen Negative (NEGATIVE) Urine Marijuana (THC) Screen Positive (NEGATIVE) CRYSTAL SANDERSON Aug 15, 2017 23:59
[2017-08-16] VITALS (7 sets, daily range): BP systolic 110–160; BP diastolic 67–81
--- NOTE | 2017-08-16 04:15 | Consultation ---
DATE OF CONSULTATION: 08/15/2017 CARDIOLOGY CONSULTATION CONSULTING PHYSICIAN: Francisco Hanson M.D. REFERRING PHYSICIAN: Elder Mtz D.O. ADDITIONAL REFERRING PHYSICIAN: Mary Kate Mccabe M.D. REASON FOR CONSULTATION: Management of chest pain. HISTORY OF PRESENT ILLNESS: The patient is a very unfortunate 62-year-old female, known to me who presents to the hospital with progressively worsening shortness of breath, which is described as sharp pain in the upper left precordial area that is increased with palpation intensity of 7/10. No associated shortness of breath. The patient had recently underwent a nuclear stress test in the outpatient setting, which was nonischemic. Her chest pain was thought to be a combination of costochondritis versus anxiety versus due to hypertension. On arrival to the hospital, she was found to have severely elevated blood pressure of 198/105 mmHg. She has been on lisinopril and metoprolol in the outpatient setting. She was also recently started on Eliquis 5 mg twice daily for paroxysmal atrial fibrillation. She was admitted to the hospital for further evaluation and management of chest pain. PAST MEDICAL HISTORY: 1. Refractory/resistant hypertension. 2. History of heart failure with preserved ejection fraction. 3. History of gastroesophageal reflux disease. 4. History of psychiatric history. 5. History of paroxysmal atrial fibrillation. PAST SURGICAL HISTORY: None. MEDICATIONS: List of medications outpatient including Eliquis 5 mg p.o. twice daily, baclofen 10 mg p.o. 3 times daily, vitamin D3 5000 units p.o. twice daily, Valium 10 mg p.o. twice a week, [place] 10/325 mg one tablet p.o. q.6 h. as needed, lisinopril 20 mg p.o. twice daily, metoprolol 25 mg p.o. daily, [place]-3 fatty acid 1000 mg twice daily, omeprazole 40 mg p.o. daily, Zantac 150 mg p.o. daily, simethicone 80 mg p.o. twice daily, and vitamin E 400 units p.o. daily. FAMILY HISTORY: No premature coronary artery disease in first-degree relatives. SOCIAL HISTORY: Denies any tobacco, alcohol, or illicit drug use. REVIEW OF SYSTEMS: HEENT: Denies any headache, diplopia, or blurred vision. CONSTITUTIONAL: Denies any fever, chills, nausea, or weight loss. CARDIOVASCULAR: Chest pain as mentioned above. No associated shortness of breath. No PND, orthopnea, or leg swelling. PULMONARY: Denies any cough, hemoptysis, or wheezing. GASTROINTESTINAL: Denies any nausea, vomiting, diarrhea, constipation, abdominal pain, or GI bleed. GENITOURINARY: Denies any hematuria, dysuria, or incontinence. NEUROLOGIC: Denies any motor dysfunction, sensory deficit, or altered speech. PHYSICAL EXAMINATION: VITAL SIGNS: Blood pressure was 198/105, pulse of 74, respirations 15, and O2 saturation of 95% on room air. GENERAL: The patient is a very pleasant 62-year-old female, in no apparent respiratory distress. Alert and oriented x4. HEENT: Atraumatic and normocephalic. Anicteric. Pupils are equal, round, and reactive to light and accommodation. Extraocular muscles intact. NECK: JVP is less than 5 cm. No carotid bruit. Carotid upstroke is 2+ bilaterally. CARDIOVASCULAR: Normal S1 and S2. Regular rate and rhythm. A 2/6 mid systolic murmur at the left sternal border. PMI is at fourth intercostal space in the midclavicular line. LUNGS: Clear to auscultation bilaterally. ABDOMEN: Soft, nontender, and nondistended. No hepatosplenomegaly. Positive bowel sounds. EXTREMITIES: No evidence of edema, clubbing, or cyanosis. LABORATORY AND DIAGNOSTIC FINDINGS: WBC is 5.6, hemoglobin 14.1, hematocrit 42.3, and platelet count is 207. Sodium is 140, potassium 3.6, chloride 104, bicarbonate 25, BUN 12, creatinine 0.9, and glucose 71. Calcium is 9.6. Troponin I is 0. ProBNP is 129. Toxicology AFO is positive for marijuana. Chest x-ray showed no acute cardiopulmonary disease. A 12-lead electrocardiogram shows sinus rhythm with no acute ST and T-wave abnormalities. ASSESSMENT AND PLAN: The patient is a very pleasant, 62-year-old female, seen in Cardiology consultation at request of Dr. Mtz/Dr. Mccabe. 1. Chest pain. This is most likely due to accelerated hypertension. I would like to optimize Sandor inhibitor and metoprolol. I would like to add a small dose of calcium channel benjy to this regimen. I will start the patient on nifedipine 30 mg p.o. daily. The goal of blood pressure is 130/80 mmHg. 2. A 12-lead electrocardiogram does not show any evidence of ischemia. First troponin I level is negative and recent nuclear stress test to be nonischemic. 3. History of paroxysmal atrial fibrillation, on Eliquis. 4. Psychiatric disorder. 5. Slight elevation of transaminase possible fatty liver. I would like to thank, Dr. Mtz and Dr. Mccabe, for the courtesy of this consultation. Francisco Hanson M.D. DR: MARIO JOB#: [id number] CC:
[2017-08-16] MEDS: HYDROcodone/Acetamin 10/325 tab ORAL PRN ×2 (07:10→22:33)
--- NOTE | 2017-08-16 07:30 | History and Physical Report ---
DATE OF ADMISSION: 08/15/2017 NOTE: POOR AUDIO I am covering Dr. Elder Mtz for time being. HISTORY OF PRESENT ILLNESS: The patient is admitted for acute coronary syndrome to rule out acute coronary syndrome with chest pain. The patient is basically complaining of chest pain for three days. Denies shortness of breath. Denies nausea, vomiting, diarrhea, or constipation. She is admitted to rule out acute coronary syndrome. PAST MEDICAL HISTORY: History of CHF, history of hypertension, history of GERD, history of depression, as well as radiculopathy, and history of sciatica. PAST SURGICAL HISTORY: hysterectomy. ALLERGIES: Bananas. MEDICATIONS: Basically baclofen, diazepam, lisinopril, metoprolol, omeprazole, and ranitidine. SOCIAL HISTORY: Denies smoking, alcohol, and drug abuse. FAMILY HISTORY: Noncontributory. REVIEW OF SYSTEMS: HEENT: Denies headaches. RESPIRATORY: Denies shortness of breath. Denies cough. CARDIOVASCULAR: Reports chest pain x3 days without orthopnea, without palpitations. GASTROINTESTINAL: Denies nausea, vomiting, or diarrhea, does have severe heartburn. EXTREMITIES: Denies any significant pain. does have some back pain. CENTRAL NERVOUS SYSTEM: Denies change in vision or speech pattern. PHYSICAL EXAMINATION: VITAL SIGNS: Temperature is 98.8 degrees, pulse is 74, and blood pressure 192/105. HEENT: PERRLA. NECK: Supple. No lymphadenopathy. CHEST: Clear to auscultation. CARDIOVASCULAR: Regular rate and rhythm. GASTROINTESTINAL: Soft, nontender, and nondistended. No organomegaly. EXTREMITIES: No edema. Reflexes equal on both sides. LABORATORY DATA: WBC of 5.6, hemoglobin 14.1, and platelets of significant changes. Sodium 140, potassium 3.6, BUN of 12, creatinine of 0.9, and glucose of 71. Troponin is negative. ASSESSMENT AND PLAN: Chest pain, rule out acute coronary syndrome. Dr. Hanson is consulted to rule out acute coronary syndrome. Cardiac workup per Dr. Hanson. Mary Kate Mccabe M.D. DR: KENDALL JOB#: [id number] CC:
[2017-08-16 08:08] LABS: BASOPHILS % (AUTO) 1.5 % (0.0-2.0); EOSINOPHILS % (AUTO) 0.2 % (0.0-3.0); HEMATOCRIT 48.8 % (37.0-47.0); HEMOGLOBIN 15.7 G/DL (12.0-16.0); MEAN CORPUSCULAR VOLUME 99 FL (80-99); MONOCYTES % (AUTO) 9.6 % (1.0-10.0); NEUTROPHILS % (AUTO) 62.8 % (45.0-75.0); PLATELET COUNT 238 K/UL (150-450); RED BLOOD COUNT 4.92 M/UL (4.20-5.40); RED CELL DISTRIBUTION WIDTH 13.6 % (11.6-14.8); WHITE BLOOD COUNT 6.5 K/UL (4.8-10.8)
--- NOTE | 2017-08-16 08:13 | Consultation ---
History of Present Illness General Chief Complaint: Chest Pain Present Illness HPI 62-year-old female with PMH of CHF, HTN, PAF, gastritis presented to ED complaining of chest pain x3 days. Pain described as midsternal, pressure-like , 7/10, with tingling sensation down the left arm. Denied shortness of breath. Denied smoking or drug use. Cellular Equipment Installer is Dr. Hanson. Workup in ED revealed severely elevated BP -198/105, pulse ox was stable on RA troponin negative pro [id number] CXR no evidence of CHF Patient was admitted for further management Allergies: Uncoded Allergies: BANANAS (Allergy, Unknown, Rash, 10/24/15) Medication History Scheduled Apixaban (Eliquis), 5 MG PO BID, (Reported) Baclofen* (Baclofen*), 10 MG ORAL THREE TIMES A DAY, (Reported) Cholecalciferol (Vitamin D3) (Vitamin D3), 5,000 UNIT PO BID, (Reported) Lisinopril (Lisinopril*), Unknown Dose ORAL DAILY, (Reported) Metoprolol Succinate* (Metoprolol Succinate*), 25 MG ORAL DAILY, (Reported) [place]-3 Fatty Acids/Fish Oil (Fish Oil 1,000 Mg Capsule), 1,000 MG ORAL BID, ( Reported) Omeprazole (Omeprazole), 40 MG ORAL DAILY Ranitidine Hcl* (Zantac*), 150 MG ORAL DAILY, (Reported) Vitamin E (Vitamin E), 400 UNIT PO BID, (Reported) Scheduled PRN Diazepam* (Valium*), 10 MG ORAL TWICE A WEEK PRN for ANXIETY, (Reported) Hydrocodone Bit/Acetaminophen 10-325* (Andreas 10-325*), 1 TAB ORAL NEED PRN for For Pain, (Reported) Simethicone* (Simethicone*), 80 MG ORAL BID PRN for GAS PAIN, (Reported) Miscellaneous Medications Vitamin E (Vitamin E), 400 UNIT PO, (Reported) Patient History Healthcare decision maker Resuscitation status Full Code Advanced Directive on File No Past Medical/Surgical History Past Medical/Surgical History: (1) Lumbar disc herniation (2) Lumbar radiculopathy (3) Hypertensive urgency (4) Sciatica Review of Systems All Other Systems: negative except mentioned in HPI Physical Exam General Appearance: WD/WN, no apparent distress, alert Lines, tubes and drains: peripheral HEENT: normocephalic, atraumatic, anicteric, mucous membranes moist Neck: non-tender, supple Respiratory/Chest: lungs clear, no respiratory distress, no accessory muscle use Cardiovascular/Chest: normal peripheral pulses, normal rate, regular rhythm, other - 2/6 systolic murmur at LSB Abdomen: normal bowel sounds, non tender, soft - obese Extremities: normal range of motion, non-tender Skin Exam: warm/dry Neurologic: no motor/sensory deficits, alert, oriented x 3, responsive Musculoskeletal: normal muscle bulk Last 24 Hour Vital Signs Date Time Temp Pulse Resp B/P (MAP) Pulse Ox O2 Delivery O2 Flow Rate FiO2 08/16/17 07:51 78 16 Room Air 08/16/17 06:33 130/80 08/16/17 04:00 97.9 78 18 130/80 95 08/16/17 04:00 73 08/16/17 01:09 97.2 77 24 130/78 100 08/16/17 00:00 80 08/15/17 22:46 201/111 08/15/17 21:10 98.4 77 25 205/111 100 08/15/17 20:00 97.0 72 20 170/84 100 08/15/17 19:45 98.3 64 20 182/81 98 Room Air 08/15/17 19:30 98.1 80 24 160/80 99 Room Air 08/15/17 19:16 182/81 08/15/17 18:00 98.3 64 20 173/80 98 Room Air 08/15/17 15:07 98.1 61 25 156/81 100 Room Air 08/15/17 14:30 172/86 08/15/17 13:45 74 15 Room Air 08/15/17 13:43 98.8 74 15 198/105 95 Room Air Intake and Output 08/15/17 08/16/17 19:00 07:00 Intake Total 250 ml Balance 250 ml Intake Oral 250 ml # Voids 2 Laboratory Tests Test 08/15/17 14:30 08/15/17 15:52 08/15/17 22:45 08/16/17 07:00 White Blood Count 5.6 K/UL (4.8-10.8) Pending Red Blood Count 4.32 M/UL (4.20-5.40) Pending Hemoglobin 14.1 G/DL (12.0-16.0) Pending Hematocrit 42.3 % (37.0-47.0) Pending Mean Corpuscular Volume 98 FL (80-99) Pending Mean Corpuscular Hemoglobin 32.5 PG (27.0-31.0) H Pending Mean Corpuscular Hemoglobin Concent 33.2 G/DL (32.0-36.0) Pending Red Cell Distribution Width 12.9 % (11.6-14.8) Pending Platelet Count 207 K/UL (150-450) Pending Mean Platelet Volume 7.8 FL (6.5-10.1) Pending Neutrophils (%) (Auto) 39.1 % (45.0-75.0) L Pending Lymphocytes (%) (Auto) 47.3 % (20.0-45.0) H Pending Monocytes (%) (Auto) 10.2 % (1.0-10.0) H Pending Eosinophils (%) (Auto) 1.3 % (0.0-3.0) Pending Basophils (%) (Auto) 2.1 % (0.0-2.0) H Pending Sodium Level 140 MMOL/L (136-145) Potassium Level 3.6 MMOL/L (3.5-5.1) Chloride Level 104 MMOL/L (98-107) Carbon Dioxide Level 25 MMOL/L (21-32) Anion Gap 11 mmol/L (5-15) Blood Urea Nitrogen 12 mg/dL (7-18) Creatinine 0.9 MG/DL (0.55-1.30) Estimat Glomerular Filtration Rate > 60 mL/min (>60) Glucose Level 71 MG/DL (74-106) L Calcium Level 9.6 MG/DL (8.5-10.1) Total Bilirubin 0.4 MG/DL (0.2-1.0) Aspartate Amino Transf (AST/SGOT) 79 U/L (15-37) H Alanine Aminotransferase (ALT/SGPT) 80 U/L (12-78) H Alkaline Phosphatase 78 U/L (46-116) Total Creatine Kinase 140 U/L (26-308) Creatine Kinase MB 1.9 NG/ML (0.0-3.6) Creatine Kinase MB Relative Index 1.3 Troponin I 0.000 ng/mL (0.000-0.056) 0.011 ng/mL (0.000-0.056) Pending Pro-B-Type Natriuretic Peptide 129 pg/mL (0-125) H Total Protein 7.9 G/DL (6.4-8.2) Albumin 3.9 G/DL (3.4-5.0) Globulin 4.0 g/dL Albumin/Globulin Ratio 1.0 (1.0-2.7) Urine Opiates Screen Negative (NEGATIVE) Urine Barbiturates Screen Negative (NEGATIVE) Phencyclidine (PCP) Screen Negative (NEGATIVE) Urine Amphetamines Screen Negative (NEGATIVE) Urine Benzodiazepines Screen Negative (NEGATIVE) Urine Cocaine Screen Negative (NEGATIVE) Urine Marijuana (THC) Screen Positive (NEGATIVE) H Prothrombin Time Pending Prothromb Time International Ratio Pending Activated Partial Thromboplast Time Pending C-Reactive Protein, Quantitative Pending Triglycerides Level Pending Cholesterol Level Pending LDL Cholesterol Pending HDL Cholesterol Pending Cholesterol/HDL Ratio Pending Thyroid Stimulating Hormone (TSH) Pending Height (Feet): 5 Height (Inches): 4.00 Weight (Pounds): 197 Medications Current Medications Medications (Trade) Dose Ordered Sig/Raul Route PRN Reason Start Time Stop Time Status Last Admin Dose Admin Acetaminophen (Tylenol) 650 mg Q4H PRN ORAL FEVER 08/15/17 22:45 09/14/17 22:44 Acetaminophen/ Hydrocodone Bitart ([place] 10/325) 1 tab EVERY 6 HOURS PRN ORAL For Pain 08/15/17 22:45 08/22/17 22:44 08/16/17 07:10 Albuterol/ Ipratropium (Albuterol/ Ipratropium) 3 ml EVERY 4 HOURS PRN HHN Shortness of Breath 08/15/17 22:45 08/20/17 22:44 Aspirin (ASA) 162 mg DAILY ORAL 08/16/17 09:00 09/15/17 08:59 Baclofen (Lioresal) 10 mg THREE TIMES A DAY ORAL 08/16/17 09:00 09/15/17 08:59 Clonidine HCl (Catapres Tab) 0.1 mg EVERY 6 HOURS ORAL 08/16/17 00:00 09/15/17 00:00 08/16/17 06:33 Diltiazem HCl (Cardizem) 10 mg EVERY HOUR PRN IV heart rate more than 120, 08/15/17 22:45 09/14/17 22:44 Enalaprilat (Vasotec) 2.5 mg EVERY 6 HOURS PRN IV sbp more than 160 08/15/17 22:45 09/14/17 22:44 Heparin Sodium (Porcine) (Heparin 5000 units/ml) 5,000 units EVERY 12 HOURS SUBQ 08/16/17 09:00 09/15/17 08:59 Ketorolac Tromethamine (Toradol 30mg) 30 mg Q6HR PRN IV moderate pain ( 4-6) 08/15/17 00:00 08/20/17 00:00 Metoprolol Succinate (Toprol XL) 25 mg DAILY ORAL 08/16/17 09:00 09/15/17 08:59 Morphine Sulfate (Morphine Sulfate) 2 mg EVERY 4 HOURS PRN IVP severe Pain (Pain Scale 7-10) 08/15/17 22:45 08/22/17 22:44 Nitroglycerin (Ntg) 0.4 mg Q5M PRN SL Prn Chest Pain 08/15/17 22:45 09/14/17 22:44 Ondansetron HCl (Zofran) 4 mg Q6H PRN IVP Nausea & Vomiting 08/15/17 22:45 09/14/17 22:44 Polyethylene Glycol (Miralax) 17 gm DAILYPRN PRN ORAL Constipation 08/15/17 22:45 09/14/17 22:44 Temazepam (Restoril) 15 mg HSPRN PRN ORAL Insomnia 08/15/17 22:45 08/22/17 22:44 08/16/17 01:18 Assessment/Plan Assessment/Plan ASSESSMENT chest pain ( likely due to HTN urgency) HTN urgency PAF hyperlipidemia mild transaminitis, likely fatty liver mild pulmonary HTN psych disorder gastritis PLAN OF CARE tele serial troponin negative ECG grayson cute ischemic changes , thus r/out for acute DC per cardio chest pain likely due to HTN urgency ECHO with WEF 55-60% and RVSP of 42 c/w3 mild pulmonary HTN cardio follows ASA BB lipid panel with elevated LDL will hold statin for now due to mild elevation of LFT educated on low fat low cholesterol diet BP management with BB and Hydralazine ( stopped Clonidine due to increased risk of bradycardia from both BB and Clonidine and started on Hydralazine) BP stabilized CXR no evidence of CHF rate control with BB and a/coagulation with Eliquis, resumed O2 HHN prn DVT prophylaxis Pain management with MS and Nitro prn case discussed and evaluated by supervising physician Stefan Oliveira)Damaris NP Aug 16, 2017 08:13
[2017-08-16] MEDS ORDERED: Heparin 5000 units/ml inj SUBQ SCH (09:00)
[2017-08-16] MEDS: Aspirin Baby 81mg ORAL SCH (09:00)
[2017-08-16 09:01] LABS: CHOLESTEROL 202 MG/DL (< 200); HDL CHOLESTEROL 62 MG/DL (40-60); TRIGLYCERIDES 73 MG/DL (30-150)
[2017-08-16] MEDS: Metoprolol Succinate XL 25mg tab ORAL SCH (09:07)
--- NOTE | 2017-08-16 15:51 | General Progress Note ---
Assessment/Plan Problem List: (1) Intractable back pain ICD Codes: M54.9 - Dorsalgia, unspecified SNOMED: 486821730 (2) Lumbosacral radiculopathy at L3 ICD Codes: M54.17 - Radiculopathy, lumbosacral region SNOMED: 3143373 (3) Chest pain ICD Codes: R07.9 - Chest pain, unspecified SNOMED: 66936698 (4) ACS (acute coronary syndrome) ICD Codes: I24.9 - Acute ischemic heart disease, unspecified SNOMED: 450178260 (5) Sciatica ICD Codes: M54.30 - Sciatica, unspecified side SNOMED: 47953090 Status: progressing Assessment/Plan chest pain atypical chest pain afebrile neg trop Subjective ROS Limited/Unobtainable: Yes Allergies: Uncoded Allergies: BANANAS (Allergy, Unknown, Rash, 10/24/15) Objective Last 24 Hour Vital Signs Date Time Temp Pulse Resp B/P (MAP) Pulse Ox O2 Delivery O2 Flow Rate FiO2 08/16/17 12:38 115/70 08/16/17 12:34 97.9 61 18 115/70 95 Room Air 08/16/17 12:03 71 08/16/17 09:07 62 134/81 08/16/17 08:32 97.9 62 18 134/81 95 Room Air 08/16/17 08:09 97.9 08/16/17 08:00 69 08/16/17 07:51 78 16 Room Air 08/16/17 06:33 130/80 08/16/17 04:00 97.9 78 18 130/80 95 08/16/17 04:00 73 08/16/17 01:09 97.2 77 24 130/78 100 08/16/17 00:00 80 08/15/17 22:46 201/111 08/15/17 21:10 98.4 77 25 205/111 100 08/15/17 20:00 97.0 72 20 170/84 100 08/15/17 19:45 98.3 64 20 182/81 98 Room Air 08/15/17 19:30 98.1 80 24 160/80 99 Room Air 08/15/17 19:16 182/81 08/15/17 18:00 98.3 64 20 173/80 98 Room Air Intake and Output 08/15/17 08/16/17 19:00 07:00 Intake Total 250 ml Balance 250 ml Intake Oral 250 ml # Voids 2 Laboratory Tests 08/15/17 15:52: Urine Opiates Screen Negative, Urine Barbiturates Screen Negative, Phencyclidine (PCP) Screen Negative, Urine Amphetamines Screen Negative, Urine Benzodiazepines Screen Negative, Urine Cocaine Screen Negative, Urine Marijuana (THC) Screen PositiveH 08/15/17 22:45: Troponin I 0.011 08/16/17 07:00: Troponin I 0.002, White Blood Count 6.5, Red Blood Count 4.92, Hemoglobin 15.7, Hematocrit 48.8H, Mean Corpuscular Volume 99, Mean Corpuscular Hemoglobin 31.8H , Mean Corpuscular Hemoglobin Concent 32.1, Red Cell Distribution Width 13.6, Platelet Count 238, Mean Platelet Volume 7.9, Neutrophils (%) (Auto) 62.8, Lymphocytes (%) (Auto) 26.0, Monocytes (%) (Auto) 9.6, Eosinophils (%) (Auto) 0.2, Basophils (%) (Auto) 1.5, Prothrombin Time 10.0, Prothromb Time International Ratio 1.0, Activated Partial Thromboplast Time 38H, C-Reactive Protein, Quantitative 1.1H, Triglycerides Level 73, Cholesterol Level 202H, LDL Cholesterol 133H, HDL Cholesterol 62H, Cholesterol/HDL Ratio 3.3, Thyroid Stimulating Hormone (TSH) 2.501 Height (Feet): 5 Height (Inches): 4.00 Weight (Pounds): 197 Cardiovascular: normal rate Respiratory/Chest: lungs clear Abdomen: non tender Mary Kate Mccabe MD Aug 16, 2017 15:51
[2017-08-16] MEDS: HydrALAZINE 10mg Tab ORAL SCH (17:20)
[2017-08-16] MEDS: Eliquis 2.5mg tablet ORAL SCH (17:20)
[2017-08-17] VITALS: BP 111/69
[2017-08-17 04:00] VITALS: BP 122/69
[2017-08-17] MEDS: HydrALAZINE 10mg Tab ORAL SCH ×4 (06:21→17:31)
[2017-08-17] MEDS: Miralax 17gm pkt ORAL PRN ×2 (06:23→21:39)
[2017-08-17] MEDS: HYDROcodone/Acetamin 10/325 tab ORAL PRN ×3 (06:23→21:40)
[2017-08-17 07:51] LABS: BASOPHILS % (AUTO) 1.6 % (0.0-2.0); EOSINOPHILS % (AUTO) 1.4 % (0.0-3.0); HEMATOCRIT 47.3 % (37.0-47.0); HEMOGLOBIN 15.4 G/DL (12.0-16.0); LYMPHOCYTES % (AUTO) 41.9 % (20.0-45.0); MEAN CORPUSCULAR VOLUME 99 FL (80-99); MONOCYTES % (AUTO) 10.1 % (1.0-10.0); PLATELET COUNT 239 K/UL (150-450); RED BLOOD COUNT 4.77 M/UL (4.20-5.40); RED CELL DISTRIBUTION WIDTH 13.4 % (11.6-14.8); WHITE BLOOD COUNT 5.3 K/UL (4.8-10.8)
[2017-08-17 08:00] VITALS: BP 147/77
[2017-08-17 09:18] LABS: ALANINE AMINOTRANSFERASE 173 U/L (12-78); ALBUMIN 3.9 G/DL (3.4-5.0); ALBUMIN/GLOBULIN RATIO 0.8 (1.0-2.7); ALKALINE PHOSPHATASE 85 U/L (46-116); ANION GAP 10 mmol/L (5-15); ASPARTATE AMINO TRANSFERASE 216 U/L (15-37); BILIRUBIN,TOTAL 0.7 MG/DL (0.2-1.0); BLOOD UREA NITROGEN 13 mg/dL (7-18); CALCIUM 9.9 MG/DL (8.5-10.1); CARBON DIOXIDE 28 MMOL/L (21-32); CHLORIDE 100 MMOL/L (98-107); CREATININE 0.9 MG/DL (0.55-1.30); POTASSIUM 4.5 MMOL/L (3.5-5.1); SODIUM 137 MMOL/L (136-145)
[2017-08-17] MEDS: Metoprolol Succinate XL 25mg tab ORAL SCH (09:38)
[2017-08-17] MEDS: Eliquis 2.5mg tablet ORAL SCH ×2 (09:38→17:31)
[2017-08-17] MEDS: Aspirin Baby 81mg ORAL SCH (09:38)
[2017-08-17 12:00] VITALS: BP 137/75
--- NOTE | 2017-08-17 13:48 | Pulmonology Progress Note ---
Assessment/Plan Assessment/Plan ASSESSMENT chest pain ( likely due to HTN urgency) HTN urgency PAF hyperlipidemia mild transaminitis, likely fatty liver mild pulmonary HTN psych disorder gastritis PLAN OF CARE tele serial troponin negative ECG no acute ischemic changes , thus r/out for acute AK per cardio chest pain likely due to HTN urgency ECHO with EF 55-60% and RVSP of 42 c/w mild pulmonary HTN cardio follows ASA BB lipid panel with elevated LDL will hold statin for now due to mild elevation of LFT educated on low fat low cholesterol diet BP management with BB and Hydralazine ( stopped Clonidine due to increased risk of bradycardia from both BB and Clonidine and started on Hydralazine) BP stabilized CXR no evidence of CHF rate control with BB and a/coagulation with Eliquis, resumed O2 HHN prn DVT prophylaxis Pain management with MS and Nitro prn case discussed and evaluated by supervising physician Subjective Allergies: Uncoded Allergies: BANANAS (Allergy, Unknown, Rash, 10/24/15) Subjective still c/o intermittent CP and SOB Objective Last 24 Hour Vital Signs Date Time Temp Pulse Resp B/P (MAP) Pulse Ox O2 Delivery O2 Flow Rate FiO2 08/17/17 13:23 137/75 08/17/17 12:00 97.9 65 20 137/75 98 Room Air 08/17/17 09:38 70 147/77 08/17/17 08:00 97.7 70 20 147/77 94 Room Air 08/17/17 08:00 56 08/17/17 07:14 77 16 Room Air 08/17/17 06:21 145/95 08/17/17 04:00 97.2 69 20 122/69 96 08/17/17 04:00 55 08/17/17 00:00 98.0 64 20 111/69 98 08/17/17 00:00 61 08/17/17 00:00 111/69 08/16/17 20:00 97.5 62 18 110/69 100 08/16/17 20:00 55 08/16/17 17:20 115/67 08/16/17 16:47 97.9 60 18 115/67 95 Room Air 08/16/17 16:00 54 Intake and Output 08/16/17 08/17/17 19:00 07:00 Intake Total 240 ml Balance 240 ml Intake Oral 240 ml # Bowel Movements 1 Objective General Appearance: WD/WN, no apparent distress, alert Lines, tubes and drains: peripheral HEENT: normocephalic, atraumatic, anicteric, mucous membranes moist Neck: non-tender, supple Respiratory/Chest: lungs clear, no respiratory distress, no accessory muscle use Cardiovascular/Chest: normal peripheral pulses, normal rate, regular rhythm, 2/6 systolic murmur at LSB Abdomen: normal bowel sounds, non tender, soft - obese Extremities: normal range of motion, non-tender Skin Exam: warm/dry Neurologic: no motor/sensory deficits, alert, oriented x 3, responsive Musculoskeletal: normal muscle bulk Laboratory Tests 08/17/17 06:32: White Blood Count 5.3, Red Blood Count 4.77, Hemoglobin 15.4, Hematocrit 47.3H, Mean Corpuscular Volume 99, Mean Corpuscular Hemoglobin 32.3H, Mean Corpuscular Hemoglobin Concent 32.5, Red Cell Distribution Width 13.4, Platelet Count 239, Mean Platelet Volume 8.2, Neutrophils (%) (Auto) 45.0, Lymphocytes (%) (Auto) 41.9, Monocytes (%) (Auto) 10.1H, Eosinophils (%) (Auto) 1.4, Basophils (%) ( Auto) 1.6, Sodium Level 137, Potassium Level 4.5, Chloride Level 100, Carbon Dioxide Level 28, Anion Gap 10, Blood Urea Nitrogen 13, Creatinine 0.9, Estimat Glomerular Filtration Rate > 60, Glucose Level 94, Calcium Level 9.9, Total Bilirubin 0.7, Aspartate Amino Transf (AST/SGOT) 216H, Alanine Aminotransferase (ALT/SGPT) 173H, Alkaline Phosphatase 85, Troponin I 0.000, Total Protein 8.6H, Albumin 3.9, Globulin 4.7, Albumin/Globulin Ratio 0.8L Current Medications Medications (Trade) Dose Ordered Sig/Raul Route PRN Reason Start Time Stop Time Status Last Admin Dose Admin Acetaminophen (Tylenol) 650 mg Q4H PRN ORAL FEVER 08/15/17 22:45 09/14/17 22:44 Acetaminophen/ Hydrocodone Bitart ([place] 10/325) 1 tab EVERY 6 HOURS PRN ORAL For Pain 08/15/17 22:45 08/22/17 22:44 08/17/17 13:23 Albuterol/ Ipratropium (Albuterol/ Ipratropium) 3 ml EVERY 4 HOURS PRN HHN Shortness of Breath 08/15/17 22:45 08/20/17 22:44 Apixaban (Eliquis) 5 mg BID ORAL 08/16/17 18:00 09/15/17 17:59 08/17/17 09:38 Aspirin (ASA) 162 mg DAILY ORAL 08/16/17 09:00 09/15/17 08:59 08/17/17 09:38 Baclofen (Lioresal) 10 mg THREE TIMES A DAY ORAL 08/16/17 09:00 09/15/17 08:59 08/17/17 13:23 Diltiazem HCl (Cardizem) 10 mg EVERY HOUR PRN IV heart rate more than 120, 08/15/17 22:45 09/14/17 22:44 Enalaprilat (Vasotec) 2.5 mg EVERY 6 HOURS PRN IV sbp more than 160 08/15/17 22:45 09/14/17 22:44 Hydralazine HCl (Apresoline) 10 mg Q6HR ORAL 08/16/17 18:00 09/15/17 17:59 08/17/17 13:23 Ketorolac Tromethamine (Toradol 30mg) 30 mg Q6HR PRN IV moderate pain ( 4-6) 08/15/17 00:00 08/20/17 00:00 Metoprolol Succinate (Toprol XL) 25 mg DAILY ORAL 08/16/17 09:00 09/15/17 08:59 08/17/17 09:38 Morphine Sulfate (Morphine Sulfate) 2 mg EVERY 4 HOURS PRN IVP severe Pain (Pain Scale 7-10) 08/15/17 22:45 08/22/17 22:44 Nitroglycerin (Ntg) 0.4 mg Q5M PRN SL Prn Chest Pain 08/15/17 22:45 09/14/17 22:44 Ondansetron HCl (Zofran) 4 mg Q6H PRN IVP Nausea & Vomiting 08/15/17 22:45 09/14/17 22:44 Polyethylene Glycol (Miralax) 17 gm DAILYPRN PRN ORAL Constipation 08/15/17 22:45 09/14/17 22:44 08/17/17 06:23 Temazepam (Restoril) 15 mg HSPRN PRN ORAL Insomnia 08/15/17 22:45 08/22/17 22:44 08/16/17 22:31 Stefan ([facility]),Damaris MARTINEZ Aug 17, 2017 13:48
[2017-08-17 16:00] VITALS: BP 147/78
--- NOTE | 2017-08-17 16:50 | Cardiology Progress Note ---
Assessment/Plan Assessment/Plan 1. Chest pain, atypical/non-cardiac,this is most likely due to accelerated hypertension. I would like to increase hydralazine and metoprolol. A 12-lead electrocardiogram does not show any evidence of ischemia. AMI is ruled out, recent nuclear stress test is reported nonischemic. 2. History of paroxysmal atrial fibrillation, on Eliquis. 3. Psychiatric disorder. 4. Slight elevation of transaminase possible fatty liver. Subjective Subjective Sinus bradycardia at 54. Still complains about chest tightness and muscle spasms. Objective Last 24 Hour Vital Signs Date Time Temp Pulse Resp B/P (MAP) Pulse Ox O2 Delivery O2 Flow Rate FiO2 08/17/17 16:00 97.9 64 20 147/78 100 Room Air 08/17/17 14:22 97.9 08/17/17 13:23 137/75 08/17/17 12:00 97.9 65 20 137/75 98 Room Air 08/17/17 12:00 52 08/17/17 09:38 70 147/77 08/17/17 08:00 97.7 70 20 147/77 94 Room Air 08/17/17 08:00 56 08/17/17 07:14 77 16 Room Air 08/17/17 06:21 145/95 08/17/17 04:00 97.2 69 20 122/69 96 08/17/17 04:00 55 08/17/17 00:00 98.0 64 20 111/69 98 08/17/17 00:00 61 08/17/17 00:00 111/69 08/16/17 20:00 97.5 62 18 110/69 100 08/16/17 20:00 55 08/16/17 17:20 115/67 Intake and Output 08/16/17 08/17/17 19:00 07:00 Intake Total 240 ml Balance 240 ml Intake Oral 240 ml # Bowel Movements 1 2D Echo: LVEF 55%, Mild LVH, Grade I lVDD, RVSP 42 mmHg, Mod MR Laboratory Tests Test 08/17/17 06:32 White Blood Count 5.3 K/UL (4.8-10.8) Red Blood Count 4.77 M/UL (4.20-5.40) Hemoglobin 15.4 G/DL (12.0-16.0) Hematocrit 47.3 % (37.0-47.0) H Mean Corpuscular Volume 99 FL (80-99) Mean Corpuscular Hemoglobin 32.3 PG (27.0-31.0) H Mean Corpuscular Hemoglobin Concent 32.5 G/DL (32.0-36.0) Red Cell Distribution Width 13.4 % (11.6-14.8) Platelet Count 239 K/UL (150-450) Mean Platelet Volume 8.2 FL (6.5-10.1) Neutrophils (%) (Auto) 45.0 % (45.0-75.0) Lymphocytes (%) (Auto) 41.9 % (20.0-45.0) Monocytes (%) (Auto) 10.1 % (1.0-10.0) H Eosinophils (%) (Auto) 1.4 % (0.0-3.0) Basophils (%) (Auto) 1.6 % (0.0-2.0) Sodium Level 137 MMOL/L (136-145) Potassium Level 4.5 MMOL/L (3.5-5.1) Chloride Level 100 MMOL/L (98-107) Carbon Dioxide Level 28 MMOL/L (21-32) Anion Gap 10 mmol/L (5-15) Blood Urea Nitrogen 13 mg/dL (7-18) Creatinine 0.9 MG/DL (0.55-1.30) Estimat Glomerular Filtration Rate > 60 mL/min (>60) Glucose Level 94 MG/DL (74-106) Calcium Level 9.9 MG/DL (8.5-10.1) Total Bilirubin 0.7 MG/DL (0.2-1.0) Aspartate Amino Transf (AST/SGOT) 216 U/L (15-37) H Alanine Aminotransferase (ALT/SGPT) 173 U/L (12-78) H Alkaline Phosphatase 85 U/L (46-116) Troponin I 0.000 ng/mL (0.000-0.056) Total Protein 8.6 G/DL (6.4-8.2) H Albumin 3.9 G/DL (3.4-5.0) Globulin 4.7 g/dL Albumin/Globulin Ratio 0.8 (1.0-2.7) L Objective GENERAL: The patient is a very pleasant 62-year-old female, in no apparent respiratory distress. Alert and oriented x4. HEENT: Atraumatic and normocephalic. Anicteric. Pupils are equal, round, and reactive to light and accommodation. Extraocular muscles intact. NECK: JVP is less than 5 cm. No carotid bruit. Carotid upstroke is 2+ bilaterally. CARDIOVASCULAR: Normal S1 and S2. Regular rate and rhythm. A 2/6 mid systolic murmur at the left sternal border. PMI is at fourth intercostal space in the midclavicular line. LUNGS: Clear to auscultation bilaterally. ABDOMEN: Soft, nontender, and nondistended. No hepatosplenomegaly. Positive bowel sounds. EXTREMITIES: No evidence of edema, clubbing, or cyanosis. CRYSTAL JOSEPH Aug 17, 2017 16:50
[2017-08-17] MEDS ORDERED: Morphine Sulfate 2mg/ml Inj IVP PRN (18:00)
[2017-08-17 20:00] VITALS: BP 129/66
--- NOTE | 2017-08-17 22:29 | General Progress Note ---
Assessment/Plan Problem List: (1) Intractable back pain ICD Codes: M54.9 - Dorsalgia, unspecified SNOMED: 090640544 (2) Lumbosacral radiculopathy at L3 ICD Codes: M54.17 - Radiculopathy, lumbosacral region SNOMED: 6682942 (3) Chest pain ICD Codes: R07.9 - Chest pain, unspecified SNOMED: 46739220 (4) ACS (acute coronary syndrome) ICD Codes: I24.9 - Acute ischemic heart disease, unspecified SNOMED: 787037369 (5) Sciatica ICD Codes: M54.30 - Sciatica, unspecified side SNOMED: 94696484 Status: progressing Assessment/Plan r/o acs per cardiology reviewed chart and labs atypical chest pain Subjective ROS Limited/Unobtainable: Yes Allergies: Coded Allergies: MORPHINE (Verified Allergy, Unknown, 08/17/17) Uncoded Allergies: BANANAS (Allergy, Unknown, Rash, 10/24/15) Objective Last 24 Hour Vital Signs Date Time Temp Pulse Resp B/P (MAP) Pulse Ox O2 Delivery O2 Flow Rate FiO2 08/17/17 17:31 147/78 08/17/17 16:00 56 08/17/17 16:00 97.9 64 20 147/78 100 Room Air 08/17/17 14:22 97.9 08/17/17 13:23 137/75 08/17/17 12:00 97.9 65 20 137/75 98 Room Air 08/17/17 12:00 52 08/17/17 09:38 70 147/77 08/17/17 08:00 97.7 70 20 147/77 94 Room Air 08/17/17 08:00 56 08/17/17 07:14 77 16 Room Air 08/17/17 06:21 145/95 08/17/17 04:00 97.2 69 20 122/69 96 08/17/17 04:00 55 08/17/17 00:00 98.0 64 20 111/69 98 08/17/17 00:00 61 08/17/17 00:00 111/69 Intake and Output 08/16/17 08/17/17 19:00 07:00 Intake Total 240 ml Balance 240 ml Intake Oral 240 ml # Bowel Movements 1 Laboratory Tests 08/17/17 06:32: White Blood Count 5.3, Red Blood Count 4.77, Hemoglobin 15.4, Hematocrit 47.3H, Mean Corpuscular Volume 99, Mean Corpuscular Hemoglobin 32.3H, Mean Corpuscular Hemoglobin Concent 32.5, Red Cell Distribution Width 13.4, Platelet Count 239, Mean Platelet Volume 8.2, Neutrophils (%) (Auto) 45.0, Lymphocytes (%) (Auto) 41.9, Monocytes (%) (Auto) 10.1H, Eosinophils (%) (Auto) 1.4, Basophils (%) ( Auto) 1.6, Sodium Level 137, Potassium Level 4.5, Chloride Level 100, Carbon Dioxide Level 28, Anion Gap 10, Blood Urea Nitrogen 13, Creatinine 0.9, Estimat Glomerular Filtration Rate > 60, Glucose Level 94, Calcium Level 9.9, Total Bilirubin 0.7, Aspartate Amino Transf (AST/SGOT) 216H, Alanine Aminotransferase (ALT/SGPT) 173H, Alkaline Phosphatase 85, Troponin I 0.000, Total Protein 8.6H, Albumin 3.9, Globulin 4.7, Albumin/Globulin Ratio 0.8L Height (Feet): 5 Height (Inches): 4.00 Weight (Pounds): 197 Cardiovascular: regular rhythm Respiratory/Chest: lungs clear Abdomen: soft Mary Kate Mccabe MD Aug 17, 2017 22:29
[2017-08-18] MEDS: HydrALAZINE 10mg Tab ORAL SCH ×4 (00:12→17:52)
[2017-08-18 00:26] VITALS: BP 135/59
[2017-08-18 04:19] VITALS: BP 152/97
[2017-08-18 08:00] VITALS: BP 161/66
[2017-08-18] MEDS: Aspirin Baby 81mg ORAL SCH (09:42)
[2017-08-18] MEDS: Eliquis 2.5mg tablet ORAL SCH ×2 (09:42→17:53)
[2017-08-18] MEDS: Metoprolol Succinate XL 25mg tab ORAL SCH (09:43)
[2017-08-18 11:59] VITALS: BP 142/77
--- NOTE | 2017-08-18 13:40 | Pulmonology Progress Note ---
Assessment/Plan Problems: (1) ACS (acute coronary syndrome) (2) Hypertensive urgency (3) Intractable pain Assessment/Plan cardiology cleared for dc no new complains dc planning outpatient f/u Subjective ROS Limited/Unobtainable: No Constitutional: Reports: no symptoms HEENT: Repors: no symptoms Respiratory: Reports: no symptoms Allergies: Coded Allergies: MORPHINE (Verified Allergy, Unknown, 08/17/17) Uncoded Allergies: BANANAS (Allergy, Unknown, Rash, 10/24/15) Objective Last 24 Hour Vital Signs Date Time Temp Pulse Resp B/P (MAP) Pulse Ox O2 Delivery O2 Flow Rate FiO2 08/18/17 12:32 142/77 08/18/17 12:00 59 08/18/17 11:59 97.9 60 18 142/77 98 Room Air 08/18/17 09:43 75 161/66 08/18/17 08:30 75 18 Room Air 21 08/18/17 08:00 97.9 73 18 161/66 99 Room Air 08/18/17 08:00 79 08/18/17 05:48 133/91 08/18/17 04:19 96.4 55 18 152/97 95 Room Air 08/18/17 04:00 53 08/18/17 00:26 97.7 54 18 135/59 99 Room Air 08/18/17 00:12 129/66 08/18/17 00:00 57 08/17/17 20:00 97.7 54 20 129/66 96 Room Air 08/17/17 20:00 56 08/17/17 19:10 72 16 Room Air 08/17/17 17:31 147/78 08/17/17 16:00 56 08/17/17 16:00 97.9 64 20 147/78 100 Room Air 08/17/17 14:22 97.9 Intake and Output 08/17/17 08/18/17 19:00 07:00 Intake Total 850 ml Output Total 300 ml Balance 850 ml -300 ml Intake Oral 850 ml Output Urine Total 300 ml # Voids 4 General Appearance: WD/WN HEENT: normocephalic, atraumatic Respiratory/Chest: chest wall non-tender, normal breath sounds Breasts: no masses Cardiovascular: normal peripheral pulses, normal rate Abdomen: normal bowel sounds, soft, non tender Genitourinary: normal external genitalia Extremities: no cyanosis Skin: no lesions Neurologic/Psychiatric: plate roller II-XII grossly normal Lymphatic: no neck adenopathy Current Medications Medications (Trade) Dose Ordered Sig/Raul Route PRN Reason Start Time Stop Time Status Last Admin Dose Admin Acetaminophen (Tylenol) 650 mg Q4H PRN ORAL FEVER 08/15/17 22:45 09/14/17 22:44 Acetaminophen/ Hydrocodone Bitart ([place] 10/325) 1 tab EVERY 6 HOURS PRN ORAL For Pain 08/15/17 22:45 08/22/17 22:44 08/17/17 21:40 Albuterol/ Ipratropium (Albuterol/ Ipratropium) 3 ml EVERY 4 HOURS PRN HHN Shortness of Breath 08/15/17 22:45 08/20/17 22:44 Apixaban (Eliquis) 5 mg BID ORAL 08/16/17 18:00 09/15/17 17:59 08/18/17 09:42 Aspirin (ASA) 162 mg DAILY ORAL 08/16/17 09:00 09/15/17 08:59 08/18/17 09:42 Baclofen (Lioresal) 10 mg THREE TIMES A DAY ORAL 08/16/17 09:00 09/15/17 08:59 08/18/17 12:32 Diltiazem HCl (Cardizem) 10 mg EVERY HOUR PRN IV heart rate more than 120, 08/15/17 22:45 09/14/17 22:44 Enalaprilat (Vasotec) 2.5 mg EVERY 6 HOURS PRN IV sbp more than 160 08/15/17 22:45 09/14/17 22:44 Hydralazine HCl (Apresoline) 10 mg Q6HR ORAL 08/16/17 18:00 09/15/17 17:59 08/18/17 12:32 Ketorolac Tromethamine (Toradol 30mg) 30 mg Q6HR PRN IV moderate pain ( 4-6) 08/15/17 00:00 08/20/17 00:00 Metoprolol Succinate (Toprol XL) 25 mg DAILY ORAL 08/16/17 09:00 09/15/17 08:59 08/18/17 09:43 Nitroglycerin (Ntg) 0.4 mg Q5M PRN SL Prn Chest Pain 08/15/17 22:45 09/14/17 22:44 Ondansetron HCl (Zofran) 4 mg Q6H PRN IVP Nausea & Vomiting 08/15/17 22:45 09/14/17 22:44 Polyethylene Glycol (Miralax) 17 gm DAILYPRN PRN ORAL Constipation 08/15/17 22:45 09/14/17 22:44 08/17/17 21:39 Temazepam (Restoril) 15 mg HSPRN PRN ORAL Insomnia 08/15/17 22:45 08/22/17 22:44 08/17/17 21:39 MALGORZATA GOMEZ Aug 18, 2017 13:40
--- NOTE | 2017-08-18 14:13 | General Progress Note ---
Assessment/Plan Problem List: (1) ACS (acute coronary syndrome) ICD Codes: I24.9 - Acute ischemic heart disease, unspecified SNOMED: 965122689 (2) Intractable back pain ICD Codes: M54.9 - Dorsalgia, unspecified SNOMED: 762811897 (3) Chest pain ICD Codes: R07.9 - Chest pain, unspecified SNOMED: 82617304 (4) Hypertensive urgency ICD Codes: I10 - Essential (primary) hypertension SNOMED: 623882794 Status: stable, progressing, tolerating diet Assessment/Plan ot pt diet bp/pain control dc w hh if clear Subjective Constitutional: Reports: weakness Allergies: Coded Allergies: MORPHINE (Verified Allergy, Unknown, 08/17/17) Uncoded Allergies: BANANAS (Allergy, Unknown, Rash, 10/24/15) All Systems: reviewed and negative except above Subjective calm in bed Objective Last 24 Hour Vital Signs Date Time Temp Pulse Resp B/P (MAP) Pulse Ox O2 Delivery O2 Flow Rate FiO2 08/18/17 12:32 142/77 08/18/17 12:00 59 08/18/17 11:59 97.9 60 18 142/77 98 Room Air 08/18/17 09:43 75 161/66 08/18/17 08:30 75 18 Room Air 21 08/18/17 08:00 97.9 73 18 161/66 99 Room Air 08/18/17 08:00 79 08/18/17 05:48 133/91 08/18/17 04:19 96.4 55 18 152/97 95 Room Air 08/18/17 04:00 53 08/18/17 00:26 97.7 54 18 135/59 99 Room Air 08/18/17 00:12 129/66 08/18/17 00:00 57 08/17/17 20:00 97.7 54 20 129/66 96 Room Air 08/17/17 20:00 56 08/17/17 19:10 72 16 Room Air 08/17/17 17:31 147/78 08/17/17 16:00 56 08/17/17 16:00 97.9 64 20 147/78 100 Room Air 08/17/17 14:22 97.9 Intake and Output 08/17/17 08/18/17 19:00 07:00 Intake Total 850 ml Output Total 300 ml Balance 850 ml -300 ml Intake Oral 850 ml Output Urine Total 300 ml # Voids 4 Height (Feet): 5 Height (Inches): 4.00 Weight (Pounds): 197 General Appearance: alert EENT: normal ENT inspection Neck: normal alignment Cardiovascular: normal peripheral pulses, normal rate, regular rhythm Respiratory/Chest: chest wall non-tender, lungs clear, normal breath sounds Abdomen: normal bowel sounds, non tender, soft Extremities: normal inspection Edema: no edema noted Arm (L), no edema noted Arm (R), no edema noted Leg (L), no edema noted Leg (R), no edema noted Pedal (L), no edema noted Pedal (R), no edema noted Generalized Neurologic: responsive, motor weakness Skin: normal pigmentation, warm/dry JOE PALOMINO Aug 18, 2017 14:12
[2017-08-18 16:00] VITALS: BP 146/76
--- NOTE | 2017-08-18 17:36 | Cardiology Progress Note ---
Assessment/Plan Assessment/Plan 1. Chest pain, atypical/non-cardiac,this is most likely due to accelerated hypertension. I would like to add lisinopril 20mg daily, in addition to hydralazine and metoprolol. A 12-lead electrocardiogram does not show any evidence of ischemia. AMI is ruled out, recent nuclear stress test is reported nonischemic. 2. History of paroxysmal atrial fibrillation, on Eliquis. 3. Psychiatric disorder. 4. Slight elevation of transaminase possible fatty liver. Subjective Subjective Sinus bradycardia at 54. Off the monitor. Objective Last 24 Hour Vital Signs Date Time Temp Pulse Resp B/P (MAP) Pulse Ox O2 Delivery O2 Flow Rate FiO2 08/18/17 12:32 142/77 08/18/17 12:00 59 08/18/17 11:59 97.9 60 18 142/77 98 Room Air 08/18/17 09:43 75 161/66 08/18/17 08:30 75 18 Room Air 21 08/18/17 08:00 97.9 73 18 161/66 99 Room Air 08/18/17 08:00 79 08/18/17 05:48 133/91 08/18/17 04:19 96.4 55 18 152/97 95 Room Air 08/18/17 04:00 53 08/18/17 00:26 97.7 54 18 135/59 99 Room Air 08/18/17 00:12 129/66 08/18/17 00:00 57 08/17/17 20:00 97.7 54 20 129/66 96 Room Air 08/17/17 20:00 56 08/17/17 19:10 72 16 Room Air Intake and Output 08/17/17 08/18/17 19:00 07:00 Intake Total 850 ml Output Total 300 ml Balance 850 ml -300 ml Intake Oral 850 ml Output Urine Total 300 ml # Voids 4 2D Echo: LVEF 55%, Mild LVH, Grade I lVDD, RVSP 42 mmHg, Mod MR Objective GENERAL: The patient is a very pleasant 62-year-old female, in no apparent respiratory distress. Alert and oriented x4. HEENT: Atraumatic and normocephalic. Anicteric. Pupils are equal, round, and reactive to light and accommodation. Extraocular muscles intact. NECK: JVP is less than 5 cm. No carotid bruit. Carotid upstroke is 2+ bilaterally. CARDIOVASCULAR: Normal S1 and S2. Regular rate and rhythm. A 2/6 mid systolic murmur at the left sternal border. PMI is at fourth intercostal space in the midclavicular line. LUNGS: Clear to auscultation bilaterally. ABDOMEN: Soft, nontender, and nondistended. No hepatosplenomegaly. Positive bowel sounds. EXTREMITIES: No evidence of edema, clubbing, or cyanosis. CRYSTAL JOSEPH Aug 18, 2017 17:36
[2017-08-18] MEDS ORDERED: Lisinopril 20mg tab ORAL SCH (17:45)
[2017-08-18 17:56] VITALS: BP 146/76
[2017-08-19] MEDS ORDERED: LISINOPRIL20 MG ORAL (13:29)
[2017-08-19] MEDS ORDERED: HYDRALAZINE HCL10 MG ORAL (13:29)
--- NOTE | 2017-08-19 13:39 | Discharge Summary ---
Discharge Summary Hospital Course Date of Admission Aug 15, 2017 at 17:08 Date of Discharge Aug 18, 2017 at 18:06 Admitting Diagnosis ACUTE CORONARY SYNDROME MARIOLA Leon is a 62 year old female who was admitted on Aug 15, 2017 at 17:08 for Acute Coronary Syndrome Hospital Course dc summary #[id number] Discharge Medications New Medications: Hydralazine Hcl* (Hydralazine Hcl*) 10 Mg Tablet 10 MG ORAL EVERY 6 HOURS, #120 TAB Lisinopril (Lisinopril*) 20 Mg Tablet 20 MG ORAL DAILY, #30 TAB Continued Medications: Apixaban (Eliquis) 5 Mg Tablet 5 MG PO BID, TAB Metoprolol Succinate* (Metoprolol Succinate*) 25 Mg Tab.er.24h 25 MG ORAL DAILY, TAB [place]-3 Fatty Acids/Fish Oil (Fish Oil 1,000 Mg Capsule) 1 Each Capsule 1000 MG ORAL BID, #30 CAP 0 Refills Ranitidine Hcl* (Zantac*) 150 Mg Tablet 150 MG ORAL DAILY, #30 TAB 0 Refills Discharge Condition Upon Discharge: stable Discharge Disposition Patient was discharged to HOME Discharge Diagnoses: Stefan (Sofya),Damaris MARTINEZ Aug 19, 2017 13:39
--- NOTE | 2017-08-19 18:03 | Cardiology Report ---
APPROVED REPORT EXAM: Two-dimensional and M-mode echocardiogram with Doppler and color Doppler. INDICATION Left Ventricular Function M-Mode DIMENSIONS IVSd1.2 (0.7-1.1cm)Left Atrium (MM)3.3 (1.6-4.0cm) LVDd4.0 (3.5-5.6cm)Aortic Root2.5 (2.0-3.7cm) PWd1.6 (0.7-1.1cm)Aortic Cusp Exc.2.0 (1.5-2.0cm) LVDs2.4 (2.5-4.0cm) PWs2.0 cm Normal left ventricular chamber size, systolic function and wall motion. Left ventricular ejection fraction estimated to be 55-60 %. Mild left ventricular hypertrophy. Anterior Echo-free space, may be due to pericardial fat or effusion. Left atrial size at upper limits of normal. Right cardiac chamber sizes are within normal limits. Focal aortic valve sclerosis with adequate cusp excursion. Thickened mitral valve leaflets with normal excursion. Mitral annulus and aortic root calcification. Pulmonic valve not well visualized. Tricuspid valve not well visualized. IVC dilated at 2.1 cm with physiological collapse. A color flow and spectral Doppler study was performed and revealed: No aortic insufficiency. Moderate mitral regurgitation. Mitral diastolic velocities suggest mild left ventricular diastolic dysfunction (Grade I). Mild tricuspid regurgitation. Tricuspid systolic velocities suggests peak right ventricular systolic pressure of 42 mmHg, consistent with mild pulmonary hypertension. Mild pulmonic regurgitation present.
--- NOTE | 2017-08-20 00:45 | Discharge Summary 2 SIG ---
DATE OF ADMISSION: 08/15/2017 DATE OF DISCHARGE: 08/18/2017 REASON FOR ADMISSION: 62-year-old female with a history of hypertension, CHF, paroxysmal atrial fibrillation, and gastritis presented to emergency department complaining of chest pain for two days. Pain described as midsternal, pressure-like, 7/10, with a tingling sensation down the left arm. The patient denied shortness of breath. Denied smoking or drug use. Patient has a accounting/finance tutor, that she follows- Dr. Hanson. Workup in the emergency room revealed severely elevated blood pressure -198/ 105. Pulse oximetry was stable on room air. Troponin was negative. ProBNP - 129. Chest x-ray revealed no evidence of CHF. The patient was admitted for further management with diagnoses of chest pain, hypertensive urgency, paroxysmal atrial fibrillation, hyperlipidemia, mild transaminitis, likely fatty liver, psychiatric disorder, and gastritis. HOSPITAL COURSE: The patient was admitted to telemetry floor. Cardiology consult was requested. Serial troponin x4 were negative. EKG revealed no acute ischemic changes. Echocardiogram revealed preserved ejection fraction of 55% to 60%, mild left ventricular hypertrophy, normal wall motion and right ventricular systolic pressure of 42 consistent with mild pulmonary hypertension as well as evidence of moderate mitral regurgitation. Blood pressure regimen was optimized by accounting/finance tutor. In addition to NIK inhibitor and beta-benjy, he added hydralazine for better blood pressure control. Per accounting/finance tutor, the patient was ruled out for acute VA with negative serial troponin and nonischemic EKG. Recent stress test was nonischemic as per accounting/finance tutor. Chest pain was atypical/noncardiac, likely secondary to hypertensive emergency as per accounting/finance tutor, and resolved as blood pressure stabilized. The patient with a history of paroxysmal atrial fibrillation. The patient was on anticoagulation with Eliquis. No signs or evidence of bleeding. Aspirin was given initially. Lipid panel revealed elevated LDL. Statin was hold due to elevated LFTs. The patient was educated on low-fat and low-cholesterol diet. Chest x-ray revealed no evidence of CHF. Supplemental oxygen and pulmonary toilet provided as needed to keep saturation above 92%. No need for supplemental oxygen. Pulse oximetry stable on room air. DVT prophylaxis provided. Joiners Supervisor cleared the patient for discharge. Initially, noted mild transaminitis, likely fatty liver disease. Prior abdominal ultrasound in 08/2016 did revealed hepatic steatosis. Monitor transaminase as outpatient. Pain management provided with morphine and nitroglycerin on as needed basis. GI prophylaxis provided. The patient was stable for discharge. FINAL DIAGNOSES: 1. Chest pain, atypical , likely secondary to hypertensive urgency- resolved. 2. Hypertensive urgency -resolved. 3. Paroxysmal atrial fibrillation. 4. Hyperlipidemia. 5. Mild transaminitis, likely related to fatty liver. 6. Mild pulmonary hypertension. 7. Gastritis. 8. Psychiatric disorder. DISCHARGE MEDICATIONS: See medication reconciliation list. DISCHARGE INSTRUCTIONS: The patient was discharged home. Follow up with the primary medical doctor and accounting/finance tutor. Elder Mtz D.O. Damaris RgNortheast Health SystemKevin N.POlive DR: CASSY JOB#: [id number] CC: NEPTALI
--- NOTE | 2017-08-27 17:55 | Cardiology Report ---
APPROVED REPORT EKG Measurement Heart [id number] VT [id number] Sinus rhythm with marked sinus arrhythmia Otherwise normal ECG
== END 2017-08-18 18:06 | disposition home or self-care (01) | DRG 305 ==
LOC: EMR 17:05 → 2E 17:08 → EDBEDREQ 18:24
DX: I16.0 Hypertensive urgency (principal); I27.20 Pulmonary hypertension, unspecified; K76.0 Fatty (change of) liver, not elsewhere classified; F99 Mental disorder, not otherwise specified; Z79.01 Long term (current) use of anticoagulants; K29.70 Gastritis, unspecified, without bleeding; E78.5 Hyperlipidemia, unspecified; R07.89 Other chest pain; I48.0 Paroxysmal atrial fibrillation; I11.0 Hypertensive heart disease with heart failure; M54.17 Radiculopathy, lumbosacral region; M54.30 Sciatica, unspecified side
CPT/HCPCS: 36415; 71045; 80053; 80061; 80307; 82550; 82553; 83880; 84443; 84484; 85025; 85610; 85730; 86140; 93005; 93306; 94664; 99285; J2405

== ENCOUNTER 2018-09-22 11:47 | Inpatient (IN) | payer MEDICARE, OTHER ==
[~2018-09-22] VITALS: Ht 162.6 cm; Wt 72.1 kg
[~2018-09-22 11:47] MED LIST changes: +ELIQUIS5 MG PO; +FISH OIL 1,0001 EAC5 ORAL; +HYDRALAZINE HCL10 MG ORAL; -Ketorolac 30mg Inj IV PRN; +LISINOPRIL20 MG ORAL; +VITAMIN D35000 UNIT PO; +VITAMIN E400 UNI6 PO
--- NOTE | 2018-09-22 12:03 | NUR ---
ED Nurse Note: Pt came into the ER w/ complaints of s/p fall this morning. Pt tripped and fell on her left side while walking on an uneven side walk. Pt also is complaining of chest pain x 2 months. Rating the pain a 7/10. Non radiating. A + O x4. Ambulatory. Skin warm to touch.
[2018-09-22 12:05] VITALS: BP 118/74
--- NOTE | 2018-09-22 12:20 | NUR ---
ED Nurse Note: Xray at the bedside.
[2018-09-22 12:28] LABS: BASOPHILS % (AUTO) 1.9 % (0.0-2.0); HEMATOCRIT 42.2 % (37.0-47.0); HEMOGLOBIN 13.6 G/DL (12.0-16.0); LYMPHOCYTES % (AUTO) 48.8 % (20.0-45.0); MEAN CORPUSCULAR VOLUME 99 FL (80-99); MONOCYTES % (AUTO) 8.7 % (1.0-10.0); NEUTROPHILS % (AUTO) 39.7 % (45.0-75.0); PLATELET COUNT 188 K/UL (150-450); RED BLOOD COUNT 4.26 M/UL (4.20-5.40); RED CELL DISTRIBUTION WIDTH 12.6 % (11.6-14.8); WHITE BLOOD COUNT 5.5 K/UL (4.8-10.8)
[2018-09-22 12:43] LABS: ANION GAP 8 mmol/L (5-15); BLOOD UREA NITROGEN 9 mg/dL (7-18); CALCIUM 9.4 MG/DL (8.5-10.1); CARBON DIOXIDE 28 MMOL/L (21-32); CHLORIDE 104 MMOL/L (98-107); POTASSIUM 4.3 MMOL/L (3.5-5.1); SODIUM 140 MMOL/L (136-145)
[2018-09-22 12:54] LABS: ALANINE AMINOTRANSFERASE 43 U/L (12-78); ALBUMIN 3.5 G/DL (3.4-5.0); ALBUMIN/GLOBULIN RATIO 0.9 (1.0-2.7); ALKALINE PHOSPHATASE 67 U/L (46-116); ASPARTATE AMINO TRANSFERASE 44 U/L (15-37); BILIRUBIN,TOTAL 0.4 MG/DL (0.2-1.0); CREATINE KINASE 71 U/L (26-308)
--- NOTE | 2018-09-22 13:00 | Emergency Room Report ---
History of Present Illness General Chief Complaint: Chest Pain Source: Patient, Medical Record Present Illness HPI Patient presents with complaints of chest pain left upper sternal Ongoing for the past 2 days Intermittently patient denies any change with position or exertion Patient had fairly extensive workup done which was last year Patient has cardiac disease Dr. Hanson is the patient's monotype operator Patient is also on blood thinners has history of paroxysmal atrial fibrillation Denies any vomiting or diarrhea patient reports that she also had a fall yesterday stepping back into a uneven area of the sidewalk fall onto her left side Allergies: Coded Allergies: MORPHINE (Verified Allergy, Unknown, 08/17/17) Uncoded Allergies: BANANAS (Allergy, Unknown, Rash, 10/24/15) Patient History Past Medical History: see triage record Pertinent Family History: none Reviewed Nursing Documentation: PMH: Agreed; PSxH: Agreed Nursing Documentation-PMH Past Medical History: No History, Except For Hx Cardiac Problems: Yes - CHF Hx Hypertension: Yes Hx Pacemaker: No Hx Asthma: No Hx COPD: No Hx Diabetes: No Hx Cancer: No Hx Gastrointestinal Problems: Yes - gastritis Hx Dialysis: No Hx Neurological Problems: No Hx Cerebrovascular Accident: No Hx Seizures: No Review of Systems All Other Systems: negative except mentioned in HPI Physical Exam Vital Signs Date Time Temp Pulse Resp B/P (MAP) Pulse Ox O2 Delivery O2 Flow Rate FiO2 09/22/18 11:55 97.9 53 16 135/98 95 Room Air 09/22/18 12:05 98 Sp02 EP Interpretation: reviewed, normal General Appearance: well appearing, no apparent distress Head: normocephalic, atraumatic Eyes: bilateral eye PERRL, bilateral eye EOMI ENT: hearing grossly normal, normal pharynx, TMs + canals normal, uvula midline Neck: full range of motion, supple, no meningismus, no bony tend Respiratory: lungs clear, normal breath sounds, no rhonchi, no respiratory distress, no retraction, no accessory muscle use Cardiovascular #1: normal peripheral pulses, regular rate, rhythm, no edema, no gallop, no JVD, no murmur Gastrointestinal: normal bowel sounds, non tender, soft, no mass, no organomegaly, non-distended, no guarding, no hernia, no pulsatile mass, no rebound Genitourinary: no CVA tenderness Musculoskeletal: other - Some discomfort palpable to the lateral left ankle Neurologic: oriented x3, responsive, catering cook III-XII nml as tested, motor strength/ tone normal, sensory intact Psychiatric: mood/affect normal Skin: normal color, no rash, warm/dry, palpation normal Lymphatic: normal inspection, no adenopathy Medical Decision Making Diagnostic Impression: Primary Impression: Acute coronary syndrome ER Course Patient is a fairly complex patient with multiple differential to consideration including but not limited to cardiac cardiopulmonary and vascular emergencies Patient's blood work and imaging is appropriate At this time patient reports that she is on blood thinners therefore aspirin was held and patient admitted for further care Labs Test 09/22/18 12:15 White Blood Count 5.5 K/UL (4.8-10.8) Red Blood Count 4.26 M/UL (4.20-5.40) Hemoglobin 13.6 G/DL (12.0-16.0) Hematocrit 42.2 % (37.0-47.0) Mean Corpuscular Volume 99 FL (80-99) Mean Corpuscular Hemoglobin 32.0 PG (27.0-31.0) Mean Corpuscular Hemoglobin Concent 32.3 G/DL (32.0-36.0) Red Cell Distribution Width 12.6 % (11.6-14.8) Platelet Count 188 K/UL (150-450) Mean Platelet Volume 7.9 FL (6.5-10.1) Neutrophils (%) (Auto) 39.7 % (45.0-75.0) Lymphocytes (%) (Auto) 48.8 % (20.0-45.0) Monocytes (%) (Auto) 8.7 % (1.0-10.0) Eosinophils (%) (Auto) 1.0 % (0.0-3.0) Basophils (%) (Auto) 1.9 % (0.0-2.0) Prothrombin Time 10.9 SEC (9.30-11.50) Prothromb Time International Ratio 1.0 (0.9-1.1) Activated Partial Thromboplast Time 42 SEC (23-33) Sodium Level 140 MMOL/L (136-145) Potassium Level 4.3 MMOL/L (3.5-5.1) Chloride Level 104 MMOL/L (98-107) Carbon Dioxide Level 28 MMOL/L (21-32) Anion Gap 8 mmol/L (5-15) Blood Urea Nitrogen 9 mg/dL (7-18) Creatinine 1.0 MG/DL (0.55-1.30) Estimat Glomerular Filtration Rate > 60 mL/min (>60) Glucose Level 87 MG/DL (74-106) Calcium Level 9.4 MG/DL (8.5-10.1) Total Bilirubin 0.4 MG/DL (0.2-1.0) Aspartate Amino Transf (AST/SGOT) 44 U/L (15-37) Alanine Aminotransferase (ALT/SGPT) 43 U/L (12-78) Alkaline Phosphatase 67 U/L (46-116) Total Creatine Kinase 71 U/L (26-308) Creatine Kinase MB 1.0 NG/ML (0.0-3.6) Creatine Kinase MB Relative Index 1.4 Troponin I 0.004 ng/mL (0.000-0.056) Total Protein 7.3 G/DL (6.4-8.2) Albumin 3.5 G/DL (3.4-5.0) Globulin 3.8 g/dL Albumin/Globulin Ratio 0.9 (1.0-2.7) EKG Diagnostic Results Rate: normal Rhythm: NSR ST Segments: no acute changes Rhythm Strip Diag. Results EP Interpretation: yes Rate: 60 Rhythm: NSR, no PVC's, no ectopy Chest X-Ray Diagnostic Results Chest X-Ray Diagnostic Results : Chest X-Ray Ordered: Yes # of Views/Limited/Complete: 1 View Indication: Chest Pain EP Interpretation: Yes Interpretation: no consolidation, no effusion, no pneumothorax Impression: No acute disease Electronically Signed by: Mary Kate Fowler DO Other X-Ray Diagnostic Results Other X-Ray Diagnostic Results : X-Ray ordered: left ankle # of Views/Limited Vs Complete: 3 View Indication: Pain EP Interpretation: Yes Interpretation: no dislocation, no soft tissue swelling, no fractures Impression: No acute disease Electronically Signed by: Mary Kate Fowler DO Last Vital Signs Date Time Temp Pulse Resp B/P (MAP) Pulse Ox O2 Delivery O2 Flow Rate FiO2 09/22/18 12:05 52 18 Room Air 98 09/22/18 12:05 97.9 118/74 98 Status: improved Disposition: ADMITTED INPATIENT Condition: Serious Referrals: Elder Mtz DO (PCP) Mary Kate Fowler DO Sep 22, 2018 13:00
[2018-09-22 13:56] VITALS: BP 115/62
--- NOTE | 2018-09-22 13:56 | NUR ---
ED Nurse Note: Tried giving report. RN unavailable. Will try again.
--- NOTE | 2018-09-22 14:14 | Diagnostic Imaging Report ---
Indication: Chest pain Technique: One view of the chest Comparison: 08/15/2017 Findings: The heart is borderline enlarged. The lungs and pleural spaces are clear. The aorta is tortuous and calcified. There are degenerative changes of the thoracic spine. No significant interim change Impression: Borderline cardiomegaly. No acute process
--- NOTE | 2018-09-22 14:21 | NUR ---
ED Nurse Note: Gave telephone report to RUTH Raymond.
[2018-09-22 14:37] VITALS: BP 124/84
--- NOTE | 2018-09-22 14:37 | NUR ---
ED Nurse Note: Pt transferred to tele unit. No acute distress noted. Left Er w/ all belongings.
--- NOTE | 2018-09-22 14:37 | NUR ---
NURSE NOTES: I received the patient from ER. Patient alert and oriented x4. Patient able to ambulate from the guerney to bed with assistance. Patient oriented to room and the use of the call light. Bed in the lowest position and call light within reach. Patient confirmed she is in possession of all her belongings listed on the belongings sheet.
--- NOTE | 2018-09-22 14:54 | Diagnostic Imaging Report ---
Indication: Pain Technique: 3 views of the left ankle Comparison: none Findings: Small plantar and calcaneal spurs are noted. No acute fractures. No dislocations. The joint spaces are preserved. Impression: Negative
--- NOTE | 2018-09-22 15:30 | NUR ---
NURSE NOTES: Contacted Dr. Mtz for admissions order. No orders received. Patient resting in bed, bed in the lowest position and call light within reach.
--- NOTE | 2018-09-22 16:32 | NUR ---
NURSE NOTES: I contacted Dr. Mtz for orders. Dr. Mtz said to contact Dr. Renee for orders. I contacted Dr. Renee for orders and he gave diet, DVT prophylaxis, and code orders.
--- NOTE | 2018-09-22 18:35 | NUR ---
NURSE NOTES: Dr. Renee said the patient needs to talk to her PMD for medication orders. I contacted Dr. Mtz to let him know the patient does not have any medication orders. I will await his response.
[2018-09-22] MEDS ORDERED: Simethicone 80mg tab ORAL PRN (19:30)
[2018-09-22] MEDS ORDERED: HYDROcodone/Acetamin 10/325 tab ORAL PRN (19:30)
--- NOTE | 2018-09-22 19:30 | NUR ---
NURSE NOTES: Received report from Jeana Sanchez RN. Pt is resting in the bed w/o respiratory distress in RA, c/o pain 03/06. IV site is asymptomatic. Bed alarm on, breaks are engaged. Call light and side table are w/in reach. Pain med Will be given. Will follow plans of care. Addendum: 09/22/18 at 2258 by PRADEEP ROSS RN BP 152/80 at 2030 due to pain. Will be reaccessed.
--- NOTE | 2018-09-22 19:48 | NUR ---
HAND-OFF: Report given to RUTH Lora.
[2018-09-22 20:00] VITALS: BP 125/80
[2018-09-22] MEDS ORDERED: Miralax 17gm pkt ORAL PRN (20:30)
[2018-09-22] MEDS ORDERED: Nitroglycerin Subl 0.4mg tab SL PRN (20:30)
[2018-09-22] MEDS ORDERED: Enalaprilat 2.5mg/2ml Inj IV PRN (20:30)
[2018-09-22] MEDS ORDERED: Albuterol/Ipratropium 3ml neb HHN PRN (20:30)
[2018-09-22] MEDS ORDERED: Ketorolac 30mg Inj IV PRN ×2 (20:30)
[2018-09-22] MEDS ORDERED: dilTIAZem HCl 25mg/5ml Inj IV PRN (20:30)
[2018-09-22] MEDS: HYDROcodone/Acetamin 10/325 tab ORAL PRN (20:56)
[2018-09-22] MEDS ORDERED: Heparin 5000 units/ml inj SUBQ SCH (21:00)
[2018-09-22] MEDS: Heparin 5000 units/ml inj SUBQ SCH (21:03)
[2018-09-22 23:17] VITALS: BP 141/74
[2018-09-22] MEDS: HydrALAZINE 10mg Tab ORAL SCH (23:20)
--- NOTE | 2018-09-23 01:00 | NUR ---
NURSE NOTES: Sleeping pill was given around midnight and currently, pt is sleeping in the bed w/o distress in RA. VSS. SR in the monitor. Will continue to monitor.
[2018-09-23] MEDS: HYDROcodone/Acetamin 10/325 tab ORAL PRN ×4 (01:57→17:19)
--- NOTE | 2018-09-23 06:56 | NUR ---
CASE MANAGEMENT:REVIEW FROM HOME CC; CHEST PAIN X2 MONTHS. S/P FALL SI: ACS 97.8 53 16 135/98 95% ON RA TROPONIN(-) IS: NORCO PO ELDERLY COMPANION CHEST XRAY LT ANKLE XRAY : TO TELEMETRY IS: LISINOPRIL PO QD TOPROL XL PO QD ASA PO QD HYDRALAZINE PO Q6 HEPARIN SQ Q12 NORCO PO Q4HRS PRN
[2018-09-23 07:04] VITALS: BP 149/70
[2018-09-23] MEDS: HydrALAZINE 10mg Tab ORAL SCH ×3 (07:06→18:19)
--- NOTE | 2018-09-23 07:30 | NUR ---
NURSE NOTES: I received the patient awake and resting in bed. Patient alert and oriented x4. Patient does not display any signs of distress or SOB. Bed in the lowest position and call light within reach. I will continue to monitor the patient and implement care.
--- NOTE | 2018-09-23 07:30 | NUR ---
HAND-OFF: Report given to Jeana Sanchez RN.
[2018-09-23 07:57] VITALS: BP 121/75
[2018-09-23 08:18] LABS: HEMOGLOBIN 13.2 G/DL (12.0-16.0); MEAN CORPUSCULAR VOLUME 100 FL (80-99); PLATELET COUNT 182 K/UL (150-450); RED CELL DISTRIBUTION WIDTH 12.5 % (11.6-14.8); WHITE BLOOD COUNT 4.2 K/UL (4.8-10.8)
[2018-09-23] MEDS: Lisinopril 20mg tab ORAL SCH (08:26)
[2018-09-23] MEDS: Aspirin Baby 81mg ORAL SCH (08:26)
[2018-09-23] MEDS: Metoprolol Succinate XL 25mg tab ORAL SCH ×2 (08:26→09:00)
[2018-09-23] MEDS: Heparin 5000 units/ml inj SUBQ SCH ×2 (08:29→21:40)
[2018-09-23 09:10] LABS: ANION GAP 7 mmol/L (5-15); BLOOD UREA NITROGEN 10 mg/dL (7-18); CALCIUM 9.3 MG/DL (8.5-10.1); CARBON DIOXIDE 29 MMOL/L (21-32); CHLORIDE 102 MMOL/L (98-107); CHOLESTEROL 117 MG/DL (< 200); CREATININE 0.9 MG/DL (0.55-1.30); HDL CHOLESTEROL 51 MG/DL (40-60); POTASSIUM 4.3 MMOL/L (3.5-5.1); SODIUM 138 MMOL/L (136-145); TRIGLYCERIDES 83 MG/DL (30-150)
--- NOTE | 2018-09-23 11:31 | NUR ---
NURSE NOTES: Patient resting in bed. Patient denies any pain or needs at this time. Bed in the lowest position and call light within reach. I will continue to monitor the patient and implement care.
--- NOTE | 2018-09-23 11:47 | NUR ---
REHAB MED PT NOTE CONSULT IBIS PARKSTED, PATIENT WILL BENEFIT FROM SKILLED PT DURING STAY FOR RETURN TO [facility]. RECOMMEND HOME PT AT [place]. SPC NEEDED. PLAN OF CARE INITIATED. KALIN WEINSTEIN PT DPT Addendum: 09/23/18 at 1147 by KALIN WEINSTEIN PT Amended: Links added.
[2018-09-23 12:08] VITALS: BP 123/69
--- NOTE | 2018-09-23 12:09 | Consultation ---
History of Present Illness General Date patient seen: Sep 23, 2018 Chief Complaint: Chest Pain Present Illness HPI 63 year old with hx of CAD, afib, on Eliquis, presented to ER after an episode of mechanical fall on the street. she did hurt her left lower ankle. she had some chest pain as well. She is admitted to telemetry for further evaluation. Allergies: Coded Allergies: MORPHINE (Verified Allergy, Unknown, 08/17/17) Uncoded Allergies: BANANAS (Allergy, Unknown, Rash, 10/24/15) Medication History Scheduled Apixaban (Eliquis), 5 MG PO BID, (Reported) Baclofen* (Baclofen*), 10 MG ORAL THREE TIMES A DAY, (Reported) Cholecalciferol (Vitamin D3) (Vitamin D3), 5,000 UNIT PO BID, (Reported) Hydralazine Hcl* (Hydralazine Hcl*), 10 MG ORAL EVERY 6 HOURS Lisinopril (Lisinopril*), 20 MG ORAL DAILY Metoprolol Succinate* (Metoprolol Succinate*), 25 MG ORAL DAILY, (Reported) Beaver-3 Fatty Acids/Fish Oil (Fish Oil 1,000 Mg Capsule), 1,000 MG ORAL BID, ( Reported) Omeprazole (Omeprazole), 40 MG ORAL DAILY Ranitidine Hcl* (Zantac*), 150 MG ORAL DAILY, (Reported) Vitamin E (Vitamin E), 400 UNIT PO BID, (Reported) Scheduled PRN Diazepam* (Valium*), 10 MG ORAL TWICE A WEEK PRN for ANXIETY, (Reported) Hydrocodone Bit/Acetaminophen 10-325* (Franklin 10-325*), 1 TAB ORAL NEED PRN for For Pain, (Reported) Simethicone* (Simethicone*), 80 MG ORAL BID PRN for GAS PAIN, (Reported) Miscellaneous Medications Vitamin E (Vitamin E), 400 UNIT PO, (Reported) Patient History Healthcare decision maker Resuscitation status Full Code Advanced Directive on File No Past Medical/Surgical History Past Medical/Surgical History: (1) Atrial fibrillation (2) Intractable pain (3) Lumbar radiculopathy Review of Systems All Other Systems: negative except mentioned in HPI Physical Exam General Appearance: WD/WN Lines, tubes and drains: peripheral HEENT: normocephalic, PERRL Neck: normal alignment Respiratory/Chest: chest wall non-tender, lungs clear Breasts: no masses Cardiovascular/Chest: normal peripheral pulses, normal rate Abdomen: normal bowel sounds Genitourinary/Rectal: normal genital exam Skin Exam: normal pigmentation Last 24 Hour Vital Signs Date Time Temp Pulse Resp B/P (MAP) Pulse Ox O2 Delivery O2 Flow Rate FiO2 09/23/18 09:00 52 121/75 09/23/18 08:35 Room Air 09/23/18 08:26 121/75 09/23/18 07:57 97.5 52 20 121/75 (90) 100 09/23/18 07:29 51 09/23/18 07:06 149/70 09/23/18 07:04 97.5 62 20 149/70 (96) 93 09/23/18 03:25 57 09/22/18 23:29 60 09/22/18 23:20 141/74 09/22/18 23:17 97.3 60 20 141/74 (96) 93 09/22/18 21:00 Room Air 09/22/18 20:49 58 09/22/18 20:00 98.0 65 20 125/80 (95) 92 09/22/18 16:11 67 09/22/18 14:37 60 20 124/84 (97) 09/22/18 14:35 98.2 58 11 115/63 100 Room Air 09/22/18 14:34 Room Air 09/22/18 13:56 98.0 68 17 115/62 100 Room Air 98 09/22/18 12:05 52 18 Room Air 98 09/22/18 12:05 97.9 52 18 118/74 98 Room Air Intake and Output 09/22/18 09/23/18 19:00 07:00 Intake Total 320 ml Balance 320 ml Intake Oral 320 ml # Voids 1 # Bowel Movements 1 Laboratory Tests Test 09/22/18 12:15 09/22/18 21:30 09/23/18 06:13 White Blood Count 5.5 K/UL (4.8-10.8) 4.2 K/UL (4.8-10.8) L Red Blood Count 4.26 M/UL (4.20-5.40) 4.10 M/UL (4.20-5.40) L Hemoglobin 13.6 G/DL (12.0-16.0) 13.2 G/DL (12.0-16.0) Hematocrit 42.2 % (37.0-47.0) 41.0 % (37.0-47.0) Mean Corpuscular Volume 99 FL (80-99) 100 FL (80-99) H Mean Corpuscular Hemoglobin 32.0 PG (27.0-31.0) H 32.1 PG (27.0-31.0) H Mean Corpuscular Hemoglobin Concent 32.3 G/DL (32.0-36.0) 32.1 G/DL (32.0-36.0) Red Cell Distribution Width 12.6 % (11.6-14.8) 12.5 % (11.6-14.8) Platelet Count 188 K/UL (150-450) 182 K/UL (150-450) Mean Platelet Volume 7.9 FL (6.5-10.1) 8.6 FL (6.5-10.1) Neutrophils (%) (Auto) 39.7 % (45.0-75.0) L % (45.0-75.0) Lymphocytes (%) (Auto) 48.8 % (20.0-45.0) H % (20.0-45.0) Monocytes (%) (Auto) 8.7 % (1.0-10.0) % (1.0-10.0) Eosinophils (%) (Auto) 1.0 % (0.0-3.0) % (0.0-3.0) Basophils (%) (Auto) 1.9 % (0.0-2.0) % (0.0-2.0) Prothrombin Time 10.9 SEC (9.30-11.50) 10.7 SEC (9.30-11.50) Prothromb Time International Ratio 1.0 (0.9-1.1) 1.0 (0.9-1.1) Activated Partial Thromboplast Time 42 SEC (23-33) H 41 SEC (23-33) H Sodium Level 140 MMOL/L (136-145) 138 MMOL/L (136-145) Potassium Level 4.3 MMOL/L (3.5-5.1) 4.3 MMOL/L (3.5-5.1) Chloride Level 104 MMOL/L (98-107) 102 MMOL/L (98-107) Carbon Dioxide Level 28 MMOL/L (21-32) 29 MMOL/L (21-32) Anion Gap 8 mmol/L (5-15) 7 mmol/L (5-15) Blood Urea Nitrogen 9 mg/dL (7-18) 10 mg/dL (7-18) Creatinine 1.0 MG/DL (0.55-1.30) 0.9 MG/DL (0.55-1.30) Estimat Glomerular Filtration Rate > 60 mL/min (>60) > 60 mL/min (>60) Glucose Level 87 MG/DL (74-106) 77 MG/DL (74-106) Calcium Level 9.4 MG/DL (8.5-10.1) 9.3 MG/DL (8.5-10.1) Total Bilirubin 0.4 MG/DL (0.2-1.0) Aspartate Amino Transf (AST/SGOT) 44 U/L (15-37) H Alanine Aminotransferase (ALT/SGPT) 43 U/L (12-78) Alkaline Phosphatase 67 U/L (46-116) Total Creatine Kinase 71 U/L (26-308) Creatine Kinase MB 1.0 NG/ML (0.0-3.6) Creatine Kinase MB Relative Index 1.4 Troponin I 0.004 ng/mL (0.000-0.056) 0.000 ng/mL (0.000-0.056) 0.000 ng/mL (0.000-0.056) Total Protein 7.3 G/DL (6.4-8.2) Albumin 3.5 G/DL (3.4-5.0) Globulin 3.8 g/dL Albumin/Globulin Ratio 0.9 (1.0-2.7) L Differential Total Cells Counted 100 Neutrophils % (Manual) 35 % (45-75) L Lymphocytes % (Manual) 56 % (20-45) H Monocytes % (Manual) 8 % (1-10) Eosinophils % (Manual) 0 % (0-3) Basophils % (Manual) 1 % (0-2) Band Neutrophils 0 % (0-8) Platelet Estimate Adequate Platelet Morphology Normal Macrocytosis 1+ C-Reactive Protein, Quantitative 0.6 mg/dL (0.00-0.90) Triglycerides Level 83 MG/DL (30-150) Cholesterol Level 117 MG/DL (< 200) LDL Cholesterol 54 mg/dL (<100) HDL Cholesterol 51 MG/DL (40-60) Cholesterol/HDL Ratio 2.3 (3.3-4.4) L Thyroid Stimulating Hormone (TSH) 4.693 uiU/mL (0.358-3.740) Height (Feet): 5 Height (Inches): 4.00 Weight (Pounds): 159 Medications Current Medications Medications (Trade) Dose Ordered Sig/Raul Route PRN Reason Start Time Stop Time Status Last Admin Dose Admin Acetaminophen (Tylenol) 650 mg Q4H PRN ORAL FEVER 09/22/18 20:30 10/22/18 20:29 Acetaminophen/ Hydrocodone Bitart (Franklin 10/325) 1 tab Q4H PRN ORAL Moderate Pain (Pain Scale 4-6) 09/22/18 19:45 09/29/18 19:44 09/23/18 07:06 Albuterol/ Ipratropium (Albuterol/ Ipratropium) 3 ml Q4H PRN HHN Shortness of Breath 09/22/18 20:30 09/27/18 20:29 Aspirin (ASA) 162 mg DAILY ORAL 09/23/18 09:00 10/23/18 08:59 09/23/18 08:26 Baclofen (Lioresal) 10 mg THREE TIMES A DAY ORAL 09/22/18 21:00 10/22/18 20:59 09/23/18 08:26 Diltiazem HCl (Cardizem) 10 mg Q1H PRN IV heart rate more than 120, 09/22/18 20:30 10/22/18 20:29 Enalaprilat (Vasotec) 2.5 mg Q6H PRN IV sbp more than 160 09/22/18 20:30 10/22/18 20:29 Heparin Sodium (Porcine) (Heparin 5000 units/ml) 5,000 units EVERY 12 HOURS SUBQ 09/22/18 21:00 10/22/18 20:59 09/23/18 08:29 Hydralazine HCl (Apresoline) 10 mg EVERY 6 HOURS ORAL 09/23/18 00:00 10/23/18 00:00 09/23/18 07:06 Ketorolac Tromethamine (Toradol 30mg) 30 mg Q6H PRN IV moderate pain ( 4-6) 09/22/18 20:30 09/27/18 20:29 Lisinopril (Prinivil) 20 mg DAILY ORAL 09/23/18 09:00 10/23/18 08:59 09/23/18 08:26 Metoprolol Succinate (Toprol XL) 25 mg DAILY ORAL 09/23/18 09:00 10/23/18 08:59 Nitroglycerin (Ntg) 0.4 mg Q5M PRN SL Prn Chest Pain 09/22/18 20:30 10/22/18 20:29 Ondansetron HCl (Zofran) 4 mg Q6H PRN IVP Nausea & Vomiting 09/22/18 20:30 10/22/18 20:29 Polyethylene Glycol (Miralax) 17 gm DAILYPRN PRN ORAL Constipation 09/22/18 20:30 10/22/18 20:29 Simethicone (Mylicon) 80 mg BIDPRN PRN ORAL GAS PAIN 09/22/18 19:30 10/22/18 19:29 Temazepam (Restoril) 15 mg HSPRN PRN ORAL Insomnia 09/22/18 20:30 09/29/18 20:29 09/22/18 23:20 Assessment/Plan Problem List: (1) Acute coronary syndrome ICD Codes: I24.9 - Acute ischemic heart disease, unspecified SNOMED: 407125981 (2) Accidental fall ICD Codes: W19.XXXA - Unspecified fall, initial encounter SNOMED: 615941938 (3) Atrial fibrillation ICD Codes: I48.91 - Unspecified atrial fibrillation SNOMED: 09080408 Assessment/Plan serial ekg, troponin echocardiogram cardiology to see serial enzymes dvt prophylaxis. Marietta Renee MD Sep 23, 2018 12:09
--- NOTE | 2018-09-23 14:45 | History and Physical Report ---
DATE OF ADMISSION: 09/22/2018 DATE AND TIME SEEN: 09/23/2018 at 7 a.m. CONSULTANTS: 1. Francisco Hanson M.D. 2. Marietta Renee M.D. 3. Randolph Cates M.D. CHIEF COMPLAINT: Right ankle pain status post fall, high blood pressure, slight chest pain. BRIEF HISTORY: The patient is a 63-year-old female, yesterday has slight chest pain, substernal, sharp, intermittent; tripped and fell and twisted left ankle came to [place], diagnosed with the above, was seen in the ER, admitted to telemetry for further care. Currently, calm, in bed. No complaint. No chest pain. No chest pain. No nausea, vomiting, or diarrhea. PAST MEDICAL HISTORY: Include hypertension, DJD, sciatica. PAST SURGICAL HISTORY: Hysterectomy, shoulder surgery. ALLERGIES: Morphine. SOCIAL HISTORY: Positive smoking. No alcohol. No intravenous drug abuse. FAMILY HISTORY: Noncontributory. PHYSICAL EXAMINATION: GENERAL: Calm in bed, oriented x3, in no acute distress. VITAL SIGNS: Temperature is 97 degrees, pulse 62, respirations 20, blood pressure 149/70. CARDIOVASCULAR: No murmur. LUNGS: Distant, clear. ABDOMEN: Bowel sounds positive. Nontender. Nondistended. EXTREMITIES: Showed no cyanosis or edema. Left ankle slightly tender. No swelling. No edema. Normal range of motion. NEUROLOGIC: The patient moves all extremities. Slightly weak. LABORATORY DATA: Show CBC is normal. BMP shows AST 44. Troponin 0.004. BMP is normal. INR is 1.0, PTT is 42. MEDICATIONS: Include lisinopril, metoprolol, aspirin, hydralazine, baclofen, albuterol, Tylenol, Zofran, enalapril, ketorolac, [place]. ASSESSMENT: Left ankle pain status post fall, ACS, hypertension, DJD, sciatica. PLAN: Pain control. PT, Dietary eval. CBC, BMP in the morning. Cardiology followup and Ortho eval. We will to continue follow this patient. Elder Mtz D.O. DR: LINCOLN JOB#: [id number] CC:
[2018-09-23 16:00] VITALS: BP 111/60
--- NOTE | 2018-09-23 17:05 | Cardiology Report ---
APPROVED REPORT EXAM: Two-dimensional and M-mode echocardiogram with Doppler and color Doppler. INDICATION LV FUNCTION M-Mode DIMENSIONS IVSd0.9 (0.7-1.1cm)Left Atrium (MM)3.6 (1.6-4.0cm) LVDd0.8 (3.5-5.6cm)Aortic Root2.6 (2.0-3.7cm) PWd1.4 (0.7-1.1cm)Aortic Cusp Exc.2.0 (1.5-2.0cm) IVSs2.9 cm LVDs1.6 (2.5-4.0cm) Normal left ventricular chamber size, systolic function and wall motion. Left ventricular ejection fraction estimated to be 60-65%. Mild left ventricular hypertrophy. Anterior Echo-free space, may be due to pericardial fat or effusion. Mild left ventricular enlargement . Right cardiac chamber sizes are within normal limits. Mild aortic valve sclerosis with adequate cusp excursion. Mildly thickened mitral valve leaflets with normal excursion. Mild mitral annulus and aortic root calcification. Pulmonic valve not well visualized. IVC at normal size with physiologic collapse . A color flow and spectral Doppler study was performed and revealed: No aortic regurgitation. Mitral diastolic velocities suggest reduced left ventricular relaxation c/w mild LV diastolic dysfunction (Grade I ) Mild mitral regurgitation. Mild tricuspid regurgitation. Tricuspid systolic velocities suggests peak right ventricular systolic pressure of 40 mmHg,consistent with mild pulmonary hypertension .
--- NOTE | 2018-09-23 17:41 | Cardiology Report ---
APPROVED REPORT EKG Measurement Heart [id number] Sinus bradycardia Otherwise normal ECG
[2018-09-23 18:15] VITALS: BP 151/86
--- NOTE | 2018-09-23 19:41 | NUR ---
HAND-OFF: Report given to RUTH Grey.
--- NOTE | 2018-09-23 19:42 | NUR ---
NURSE NOTES: Received report from RUTH Raymond. Pt is resting in bed. In no acute distress. Bed in lowest position, call light within reach. Will continue plan of care.
[2018-09-23 20:00] VITALS: BP 135/77
--- NOTE | 2018-09-23 21:08 | Cardiology Progress Note ---
Assessment/Plan Assessment/Plan The patient is seen and examined, full consult note will be dictated. Objective Last 24 Hour Vital Signs Date Time Temp Pulse Resp B/P (MAP) Pulse Ox O2 Delivery O2 Flow Rate FiO2 09/23/18 18:19 151/86 09/23/18 18:15 64 151/86 (107) 09/23/18 17:49 97.7 09/23/18 16:00 97.7 56 20 111/60 (77) 100 09/23/18 15:14 53 09/23/18 12:08 97.2 53 20 123/69 (87) 100 09/23/18 12:00 123/69 09/23/18 11:37 54 09/23/18 09:00 52 121/75 09/23/18 08:35 Room Air 09/23/18 08:26 121/75 09/23/18 07:57 97.5 52 20 121/75 (90) 100 09/23/18 07:29 51 09/23/18 07:06 149/70 09/23/18 07:04 97.5 62 20 149/70 (96) 93 09/23/18 03:25 57 09/22/18 23:29 60 09/22/18 23:20 141/74 09/22/18 23:17 97.3 60 20 141/74 (96) 93 Intake and Output 09/22/18 09/23/18 18:59 06:59 Intake Total 320 ml Balance 320 ml Intake Oral 320 ml # Voids 1 # Bowel Movements 1 Laboratory Tests Test 09/22/18 21:30 09/23/18 06:13 Troponin I 0.000 ng/mL (0.000-0.056) 0.000 ng/mL (0.000-0.056) White Blood Count 4.2 K/UL (4.8-10.8) L Red Blood Count 4.10 M/UL (4.20-5.40) L Hemoglobin 13.2 G/DL (12.0-16.0) Hematocrit 41.0 % (37.0-47.0) Mean Corpuscular Volume 100 FL (80-99) H Mean Corpuscular Hemoglobin 32.1 PG (27.0-31.0) H Mean Corpuscular Hemoglobin Concent 32.1 G/DL (32.0-36.0) Red Cell Distribution Width 12.5 % (11.6-14.8) Platelet Count 182 K/UL (150-450) Mean Platelet Volume 8.6 FL (6.5-10.1) Neutrophils (%) (Auto) % (45.0-75.0) Lymphocytes (%) (Auto) % (20.0-45.0) Monocytes (%) (Auto) % (1.0-10.0) Eosinophils (%) (Auto) % (0.0-3.0) Basophils (%) (Auto) % (0.0-2.0) Differential Total Cells Counted 100 Neutrophils % (Manual) 35 % (45-75) L Lymphocytes % (Manual) 56 % (20-45) H Monocytes % (Manual) 8 % (1-10) Eosinophils % (Manual) 0 % (0-3) Basophils % (Manual) 1 % (0-2) Band Neutrophils 0 % (0-8) Platelet Estimate Adequate Platelet Morphology Normal Macrocytosis 1+ Prothrombin Time 10.7 SEC (9.30-11.50) Prothromb Time International Ratio 1.0 (0.9-1.1) Activated Partial Thromboplast Time 41 SEC (23-33) H Sodium Level 138 MMOL/L (136-145) Potassium Level 4.3 MMOL/L (3.5-5.1) Chloride Level 102 MMOL/L (98-107) Carbon Dioxide Level 29 MMOL/L (21-32) Anion Gap 7 mmol/L (5-15) Blood Urea Nitrogen 10 mg/dL (7-18) Creatinine 0.9 MG/DL (0.55-1.30) Estimat Glomerular Filtration Rate > 60 mL/min (>60) Glucose Level 77 MG/DL (74-106) Calcium Level 9.3 MG/DL (8.5-10.1) C-Reactive Protein, Quantitative 0.6 mg/dL (0.00-0.90) Triglycerides Level 83 MG/DL (30-150) Cholesterol Level 117 MG/DL (< 200) LDL Cholesterol 54 mg/dL (<100) HDL Cholesterol 51 MG/DL (40-60) Cholesterol/HDL Ratio 2.3 (3.3-4.4) L Thyroid Stimulating Hormone (TSH) 4.693 uiU/mL (0.358-3.740) Valentin,Francisco MD Sep 23, 2018 21:08
[2018-09-23] MEDS ORDERED: Lexiscan 0.4mg/5ml syringe IV PRN (21:27)
[2018-09-24] VITALS: BP 146/86
[2018-09-24] MEDS: HydrALAZINE 10mg Tab ORAL SCH ×3 (00:14→12:33)
--- NOTE | 2018-09-24 00:15 | Consultation ---
DATE OF CONSULTATION: 09/23/2018 CONSULTING PHYSICIAN: Randolph Cates M.D. REFERRING PHYSICIAN: Elder Mtz D.O. CHIEF COMPLAINT: Left ankle pain. HISTORY OF PRESENT ILLNESS: The patient is a pleasant 63-year-old female, who is well known to me. She subsequently had a fall when she walked in right next to this electrical box, subsequently fell. She had noticed some discomfort in the lateral aspect of left ankle, little difficulty bearing weight. Overall, she is comfortable. She is admitted for cardiac issues. PAST MEDICAL HISTORY: Reviewed per intake chart. PAST SURGICAL HISTORY: Reviewed per intake chart. MEDICATIONS: Reviewed per intake chart. PHYSICAL EXAMINATION: GENERAL: The patient is alert and oriented. She is resting comfortably on bed. VITAL SIGNS: Afebrile with stable vital signs. EXTREMITIES: Left ankle examination shows no significant pain in the lateral malleolus and pain on peroneal tendon. Posterior calf is soft. Neurovascular status is normal. No ecchymosis. No swelling. Ankle examination with anterior drawer testing and neutral plantar flexion is intact. Sensation to light touch. IMAGING: Three views of left ankle reviewed and showed no fracture or dislocation. No soft tissue abnormalities in joint space. ASSESSMENT: Left leg sprain, possible peroneal tendons. DISCUSSION: At this point, she is having pain along the peroneal tendons. At this point, I think we can do cryotherapy, compression wraps, and weightbearing as tolerated. If she still has issues, then follow up and may be consideration for ankle lace up brace to give more support would be reasonable. Randolph Cates M.D. DR: RODNEY JOB#: [id number] CC: NEPTALI
[2018-09-24 04:00] VITALS: BP 158/87
[2018-09-24 06:26] LABS: HEMATOCRIT 40.6 % (37.0-47.0); HEMOGLOBIN 13.1 G/DL (12.0-16.0); MEAN CORPUSCULAR VOLUME 100 FL (80-99); PLATELET COUNT 171 K/UL (150-450); RED BLOOD COUNT 4.06 M/UL (4.20-5.40); RED CELL DISTRIBUTION WIDTH 12.6 % (11.6-14.8); WHITE BLOOD COUNT 4.1 K/UL (4.8-10.8)
--- NOTE | 2018-09-24 07:02 | NUR ---
HAND-OFF: Report given to RUTH Simeon.
--- NOTE | 2018-09-24 07:03 | NUR ---
NURSE NOTES: Received report from RUTH Grey. Pt is laying in bed sleeping. No distress noted. Bed is in lowest position, side rails up X2, and call light is within reach. Will continue to monitor.
[2018-09-24 07:07] LABS: ANION GAP 7 mmol/L (5-15); BLOOD UREA NITROGEN 9 mg/dL (7-18); CALCIUM 9.5 MG/DL (8.5-10.1); CARBON DIOXIDE 29 MMOL/L (21-32); CHLORIDE 104 MMOL/L (98-107); SODIUM 140 MMOL/L (136-145)
[2018-09-24 08:00] VITALS: BP 177/88
[2018-09-24] MEDS: Aspirin Baby 81mg ORAL SCH (08:33)
[2018-09-24] MEDS: Heparin 5000 units/ml inj SUBQ SCH (08:35)
[2018-09-24 09:00] VITALS: BP 142/72
[2018-09-24] MEDS: Lisinopril 20mg tab ORAL SCH (09:00)
[2018-09-24] MEDS: Metoprolol Succinate XL 25mg tab ORAL SCH (09:00)
--- NOTE | 2018-09-24 10:52 | Pulmonology Progress Note ---
Assessment/Plan Problems: (1) Acute coronary syndrome (2) Accidental fall (3) Atrial fibrillation Assessment/Plan stress test scheduled for today serial ekg, troponin echocardiogram cardiology to see serial enzymes dvt prophylaxis. dc home if stress test negative Subjective ROS Limited/Unobtainable: No Interval Events: NPO if stress test negative Constitutional: Reports: no symptoms HEENT: Repors: no symptoms Allergies: Coded Allergies: MORPHINE (Verified Allergy, Unknown, 08/17/17) Uncoded Allergies: BANANAS (Allergy, Unknown, Rash, 10/24/15) Objective Last 24 Hour Vital Signs Date Time Temp Pulse Resp B/P (MAP) Pulse Ox O2 Delivery O2 Flow Rate FiO2 09/24/18 08:00 54 16 Room Air 21 09/24/18 05:48 145/64 09/24/18 04:00 55 09/24/18 04:00 97.6 55 20 158/87 (110) 98 09/24/18 00:14 146/86 09/24/18 00:00 97.4 88 20 146/86 (106) 99 09/23/18 21:00 Room Air 09/23/18 20:00 62 09/23/18 20:00 97.8 62 18 135/77 (96) 99 09/23/18 18:19 151/86 09/23/18 18:15 64 151/86 (107) 09/23/18 17:49 97.7 09/23/18 16:00 97.7 56 20 111/60 (77) 100 09/23/18 15:14 53 09/23/18 12:08 97.2 53 20 123/69 (87) 100 09/23/18 12:00 123/69 09/23/18 11:37 54 Intake and Output 09/23/18 09/24/18 19:00 07:00 Intake Total 600 ml 240 ml Balance 600 ml 240 ml Intake Oral 600 ml 240 ml General Appearance: WD/WN HEENT: normocephalic Respiratory/Chest: chest wall non-tender, lungs clear Breasts: no masses Cardiovascular: normal peripheral pulses, normal rate, regular rhythm Abdomen: normal bowel sounds, soft, non tender Genitourinary: normal external genitalia Skin: no rash Neurologic/Psychiatric: 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 II-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 grossly normal Laboratory Tests 09/24/18 05:20: White Blood Count 4.1L, Red Blood Count 4.06L, Hemoglobin 13.1, Hematocrit 40.6 , Mean Corpuscular Volume 100H, Mean Corpuscular Hemoglobin 32.3H, Mean Corpuscular Hemoglobin Concent 32.3, Red Cell Distribution Width 12.6, Platelet Count 171, Mean Platelet Volume 8.5, Neutrophils (%) (Auto) , Lymphocytes (%) ( Auto) , Monocytes (%) (Auto) , Eosinophils (%) (Auto) , Basophils (%) (Auto) , Sodium Level 140, Potassium Level 4.0, Chloride Level 104, Carbon Dioxide Level 29, Anion Gap 7, Blood Urea Nitrogen 9, Creatinine 1.0, Estimat Glomerular Filtration Rate > 60, Glucose Level 87, Calcium Level 9.5, Troponin I 0.000 Current Medications Medications (Trade) Dose Ordered Sig/Raul Route PRN Reason Start Time Stop Time Status Last Admin Dose Admin Acetaminophen (Tylenol) 650 mg Q4H PRN ORAL FEVER 09/22/18 20:30 10/22/18 20:29 Acetaminophen/ Hydrocodone Bitart ([place] 10/325) 1 tab Q4H PRN ORAL Moderate Pain (Pain Scale 4-6) 09/22/18 19:45 09/29/18 19:44 09/23/18 17:19 Albuterol/ Ipratropium (Albuterol/ Ipratropium) 3 ml Q4H PRN HHN Shortness of Breath 09/22/18 20:30 09/27/18 20:29 Aspirin (ASA) 162 mg DAILY ORAL 09/23/18 09:00 10/23/18 08:59 09/24/18 08:33 Baclofen (Lioresal) 10 mg THREE TIMES A DAY ORAL 09/22/18 21:00 10/22/18 20:59 09/24/18 08:33 Diltiazem HCl (Cardizem) 10 mg Q1H PRN IV heart rate more than 120, 09/22/18 20:30 10/22/18 20:29 Enalaprilat (Vasotec) 2.5 mg Q6H PRN IV sbp more than 160 09/22/18 20:30 10/22/18 20:29 Heparin Sodium (Porcine) (Heparin 5000 units/ml) 5,000 units EVERY 12 HOURS SUBQ 09/22/18 21:00 10/22/18 20:59 09/24/18 08:35 Hydralazine HCl (Apresoline) 10 mg EVERY 6 HOURS ORAL 09/23/18 00:00 10/23/18 00:00 09/24/18 05:48 Ketorolac Tromethamine (Toradol 30mg) 30 mg Q6H PRN IV moderate pain ( 4-6) 09/22/18 20:30 09/27/18 20:29 09/24/18 00:16 Lisinopril (Prinivil) 20 mg DAILY ORAL 09/23/18 09:00 10/23/18 08:59 09/23/18 08:26 Metoprolol Succinate (Toprol XL) 25 mg DAILY ORAL 09/23/18 09:00 10/23/18 08:59 Nitroglycerin (Ntg) 0.4 mg Q5M PRN SL Prn Chest Pain 09/22/18 20:30 10/22/18 20:29 Ondansetron HCl (Zofran) 4 mg Q6H PRN IVP Nausea & Vomiting 09/22/18 20:30 10/22/18 20:29 Polyethylene Glycol (Miralax) 17 gm DAILYPRN PRN ORAL Constipation 09/22/18 20:30 10/22/18 20:29 Regadenoson (Lexiscan) 0.4 mg ONCE PRN IV CARDIOLOGY 09/23/18 21:27 09/24/18 23:59 Simethicone (Mylicon) 80 mg BIDPRN PRN ORAL GAS PAIN 09/22/18 19:30 10/22/18 19:29 Temazepam (Restoril) 15 mg HSPRN PRN ORAL Insomnia 09/22/18 20:30 09/29/18 20:29 09/23/18 21:41 Marietta Renee MD Sep 24, 2018 10:52
[2018-09-24 12:00] VITALS: BP 139/83
[2018-09-24 12:33] VITALS: BP 139/83
[2018-09-24] MEDS: HYDROcodone/Acetamin 10/325 tab ORAL PRN (12:33)
--- NOTE | 2018-09-24 14:39 | General Progress Note ---
Assessment/Plan Problem List: (1) Left ankle pain ICD Codes: M25.572 - Pain in left ankle and joints of left foot SNOMED: 02060881, 374058013 (2) Accidental fall ICD Codes: W19.XXXA - Unspecified fall, initial encounter SNOMED: 051755067 (3) Intractable pain ICD Codes: R52 - Pain, unspecified SNOMED: 92802644 (4) Chest pain ICD Codes: R07.9 - Chest pain, unspecified SNOMED: 47341919 (5) Acute coronary syndrome ICD Codes: I24.9 - Acute ischemic heart disease, unspecified SNOMED: 876806414 Status: stable, progressing Assessment/Plan pt diet pain control dc if clear Subjective Allergies: Coded Allergies: MORPHINE (Verified Allergy, Unknown, 08/17/17) Uncoded Allergies: BANANAS (Allergy, Unknown, Rash, 10/24/15) All Systems: reviewed and negative except above Subjective calm in bed wants to go home Objective Last 24 Hour Vital Signs Date Time Temp Pulse Resp B/P (MAP) Pulse Ox O2 Delivery O2 Flow Rate FiO2 09/24/18 12:33 139/83 09/24/18 12:00 48 09/24/18 09:00 Room Air 09/24/18 09:00 58 18 142/72 (95) 98 09/24/18 08:00 56 09/24/18 08:00 54 16 Room Air 21 09/24/18 08:00 96.8 59 16 177/88 (117) 98 09/24/18 05:48 145/64 09/24/18 04:00 55 09/24/18 04:00 97.6 55 20 158/87 (110) 98 09/24/18 00:14 146/86 09/24/18 00:00 97.4 88 20 146/86 (106) 99 09/23/18 21:00 Room Air 09/23/18 20:00 62 09/23/18 20:00 97.8 62 18 135/77 (96) 99 09/23/18 18:19 151/86 09/23/18 18:15 64 151/86 (107) 09/23/18 17:49 97.7 09/23/18 16:00 97.7 56 20 111/60 (77) 100 09/23/18 15:14 53 Intake and Output 09/23/18 09/24/18 19:00 07:00 Intake Total 600 ml 240 ml Balance 600 ml 240 ml Intake Oral 600 ml 240 ml Laboratory Tests 09/24/18 05:20: White Blood Count 4.1L, Red Blood Count 4.06L, Hemoglobin 13.1, Hematocrit 40.6 , Mean Corpuscular Volume 100H, Mean Corpuscular Hemoglobin 32.3H, Mean Corpuscular Hemoglobin Concent 32.3, Red Cell Distribution Width 12.6, Platelet Count 171, Mean Platelet Volume 8.5, Neutrophils (%) (Auto) , Lymphocytes (%) ( Auto) , Monocytes (%) (Auto) , Eosinophils (%) (Auto) , Basophils (%) (Auto) , Sodium Level 140, Potassium Level 4.0, Chloride Level 104, Carbon Dioxide Level 29, Anion Gap 7, Blood Urea Nitrogen 9, Creatinine 1.0, Estimat Glomerular Filtration Rate > 60, Glucose Level 87, Calcium Level 9.5, Troponin I 0.000 Height (Feet): 5 Height (Inches): 4.00 Weight (Pounds): 159 General Appearance: alert EENT: normal ENT inspection Neck: normal alignment Cardiovascular: normal peripheral pulses, normal rate, regular rhythm Respiratory/Chest: chest wall non-tender, lungs clear, normal breath sounds Abdomen: normal bowel sounds, non tender, soft Extremities: normal inspection Edema: no edema noted Arm (L), no edema noted Arm (R), no edema noted Leg (L), no edema noted Leg (R), no edema noted Pedal (L), no edema noted Pedal (R), no edema noted Generalized Neurologic: responsive, motor weakness Skin: normal pigmentation, warm/dry Elder Mtz DO Sep 24, 2018 14:39
--- NOTE | 2018-09-24 15:56 | Diagnostic Imaging Report ---
Indications: Chest pain Technique: Single day single isotope protocol utilized. Initially, resting images obtained using IV administration 10 millicuries 99M technetium Myoview. Subsequently, patient underwent lexiscan stress testing. See cardiology report for details. During adenosine infusion, IV administration 29.9 mCi 99 M technetium Myoview. SPECT and planar images obtained. SPECT images gated to 8 phases of the cardiac cycle were also obtained, and reformatted into cine images for evaluation of ejection fraction. Comparison: none Findings:) Of symptoms during infusion is not described in the provided cardiology report. Per cardiology report, resting EKG demonstrates sinus bradycardia. Presence or absence of ST changes is not described on the provided cardiology report. Imaging demonstrates normal poststress perfusion, no fixed nor reversible perfusion defects. Normal left ventricular chamber size. Calculated post stress ejection fraction 77%. No focal wall motion abnormality Impression: Nonischemic clinical response to pharmacologic stress, per cardiology report Nonischemic electrocardiographic response to pharmacologic stress, per cardiology report No imaging findings to suggest ischemia, at level of stress achieved. Calculated post stress ejection fraction greater than 70%
--- NOTE | 2018-09-24 16:06 | NUR ---
*-* DISCHARGE PLANNED *-* PATIENT HAS BEEN REFERRED TO: [facility] *-* SPOKE TO FESTUS AT [facility] AND THEY HAVE AGREED TO FOLLOW PATIENT.
--- NOTE | 2018-09-24 17:34 | NUR ---
NURSE NOTES: Pt has been discharged per MD orders. Heart monitor was removed and returned to [place]. IV was removed. No swelling or redness noted. Went over belongings list with pt. Signed belongings list is in the chart. Taxi has been called per pts request to be taken home.
--- NOTE | 2018-09-24 22:04 | Cardiology Progress Note ---
Assessment/Plan Assessment/Plan 1. Non-cardiac chest pain, nuclear stress test is non-ischemic, continue metoprolol. OK to discharge home. 2. PAF, in sinus rhythm now, continue Eliquis. 3. Hx of HTN. 4. Mild pulmonary HTN. 5. Hypertensive heart disease. Subjective Subjective Sinus rhythm at rate of 96. Objective Last 24 Hour Vital Signs Date Time Temp Pulse Resp B/P (MAP) Pulse Ox O2 Delivery O2 Flow Rate FiO2 09/24/18 12:33 139/83 09/24/18 12:00 97.1 96 19 139/83 (101) 99 09/24/18 12:00 48 09/24/18 09:00 Room Air 09/24/18 09:00 58 18 142/72 (95) 98 09/24/18 08:00 56 09/24/18 08:00 54 16 Room Air 21 09/24/18 08:00 96.8 59 16 177/88 (117) 98 09/24/18 05:48 145/64 09/24/18 04:00 55 09/24/18 04:00 97.6 55 20 158/87 (110) 98 09/24/18 00:14 146/86 09/24/18 00:00 97.4 88 20 146/86 (106) 99 Intake and Output 09/23/18 09/24/18 18:59 06:59 Intake Total 600 ml 240 ml Balance 600 ml 240 ml Intake Oral 600 ml 240 ml 2D Echo: EF 55%, Mild LVH, Grade I LVDD, Mild MR, RVSP 40 mmHg Laboratory Tests Test 09/24/18 05:20 White Blood Count 4.1 K/UL (4.8-10.8) L Red Blood Count 4.06 M/UL (4.20-5.40) L Hemoglobin 13.1 G/DL (12.0-16.0) Hematocrit 40.6 % (37.0-47.0) Mean Corpuscular Volume 100 FL (80-99) H Mean Corpuscular Hemoglobin 32.3 PG (27.0-31.0) H Mean Corpuscular Hemoglobin Concent 32.3 G/DL (32.0-36.0) Red Cell Distribution Width 12.6 % (11.6-14.8) Platelet Count 171 K/UL (150-450) Mean Platelet Volume 8.5 FL (6.5-10.1) Neutrophils (%) (Auto) % (45.0-75.0) Lymphocytes (%) (Auto) % (20.0-45.0) Monocytes (%) (Auto) % (1.0-10.0) Eosinophils (%) (Auto) % (0.0-3.0) Basophils (%) (Auto) % (0.0-2.0) Sodium Level 140 MMOL/L (136-145) Potassium Level 4.0 MMOL/L (3.5-5.1) Chloride Level 104 MMOL/L (98-107) Carbon Dioxide Level 29 MMOL/L (21-32) Anion Gap 7 mmol/L (5-15) Blood Urea Nitrogen 9 mg/dL (7-18) Creatinine 1.0 MG/DL (0.55-1.30) Estimat Glomerular Filtration Rate > 60 mL/min (>60) Glucose Level 87 MG/DL (74-106) Calcium Level 9.5 MG/DL (8.5-10.1) Troponin I 0.000 ng/mL (0.000-0.056) Objective HEENT: normocephalic, atraumatic, bilateral eye PERRL, bilateral eye EOMI Neck: No JVD, no carotid bruit. Respiratory: lungs clear Cardiovascular: normal S1 S2, regular rate and rhythm, no gallops or rubs or murmurs. Gastrointestinal: normal bowel sounds, non tender, soft, no mass, no organomegaly, non-distended. + BS. Musculoskeletal: no edema, clubbing or cyanosis. Francisco Hanson MD Sep 24, 2018 22:04
--- NOTE | 2018-09-24 23:30 | Consultation ---
DATE OF CONSULTATION: 09/23/2018 CARDIOLOGY CONSULTATION CONSULTING PHYSICIAN: Francisco Hanson M.D. REFERRING PHYSICIAN: Elder Mtz D.O. REASON FOR CONSULTATION: Management of chest pain. HISTORY OF PRESENT ILLNESS: This is a very pleasant 63-year-old female, who presents to the hospital with complaints of left precordial chest pain described as sharp pain, intermittent that has been going on for the past 2 days. The pain was nonradiating. The patient has had a recent nuclear stress test in the outpatient setting and did not show any evidence of ischemia. The patient also has history of paroxysmal atrial fibrillation, on Eliquis therapy. Her cardiovascular history is also significant for history of hypertension. At the time of arrival to the hospital, blood pressure was 135/98 mmHg and heart rate was 53. A 12-lead electrocardiogram on arrival to the hospital showed sinus bradycardia at the rate of [address] and T-wave abnormalities. A 2D echocardiography was also done on 09/23/2018, which showed normal left ventricular systolic function with LVEF of about 60% to 65%, mild left ventricular hypertrophy, and grade 1 LV diastolic dysfunction. Her right ventricular systolic pressure was measured at 40 mmHg. She also showed mild mitral regurgitation. The patient was admitted to telemetry for further evaluation and management of chest pain. Cardiology consultation was made at the request of Dr. Mtz. PAST MEDICAL HISTORY: 1. Paroxysmal atrial fibrillation. 2. History of diastolic heart failure. 3. Hypertension. 4. Gastritis. MEDICATIONS: List of medications at home includes apixaban 5 mg p.o. twice daily, baclofen 10 mg p.o. 3 times a day, vitamin D3 5000 units twice daily, Valium 10 mg twice daily p.r.n. anxiety, hydralazine 10 mg p.o. q.6 hours, [place] 10/325 one tablet q.6 hours as needed for severe pain, lisinopril 20 mg p.o. daily, metoprolol 25 mg daily, fish oil 1000 mg twice a day, omeprazole 40 mg p.o. daily, Zantac 150 mg daily, simethicone 80 mg p.o. twice daily, and vitamin E 400 units p.o. daily. ALLERGIES: Morphine and bananas. FAMILY HISTORY: No premature coronary artery disease in the first-degree relatives. SOCIAL HISTORY: Denies any tobacco, alcohol, or illicit drug use. REVIEW OF SYSTEMS: HEENT: Denies any headache, diplopia, or blurred vision. CONSTITUTIONAL: Denies any fever, chills, night sweats, or weight loss. CARDIOVASCULAR: Complains of chest pain as mentioned above. No true shortness of breath, PND, or orthopnea. PULMONARY: Denies any cough, hemoptysis, or wheezing. GASTROINTESTINAL: Denies any nausea, vomiting, diarrhea, constipation, abdominal pain, or GI bleed. GENITOURINARY: Denies any hematuria, dysuria, or incontinence. NEUROLOGY: Denies any motor dysfunction, sensory deficit, or altered speech. PHYSICAL EXAMINATION: VITAL SIGNS: Blood pressure was 135/98, pulse of 53, respirations 16, temperature 97.9 degrees Fahrenheit, and O2 saturation 95% on room air. GENERAL: The patient is a very unfortunate 63-year-old female, who is seen in Cardiology consultation, in no apparent respiratory distress. Alert and oriented x4. HEENT: Atraumatic and normocephalic. Anicteric. Pupils are equal, round, and reactive to light and accommodation. Extraocular muscles intact. NECK: JVP less than 5 cm. No carotid bruits. Carotid upstrokes 2+ bilaterally. CARDIOVASCULAR: Normal S1, S2. Regular rate and rhythm. No murmurs, gallops, or rubs. PMI is at fourth intercostal space at the midclavicular line. LUNGS: Clear to auscultation bilaterally. ABDOMEN: Soft, nontender, and nondistended. No hepatosplenomegaly. Positive bowel sounds. EXTREMITIES: No evidence of edema, clubbing, or cyanosis. LABORATORY FINDINGS: WBC of 5.5, hemoglobin of 13.6, hematocrit of 42.4, and platelet count is 188,000. Chemistry showed sodium 140, potassium is 4.3, chloride 104, bicarbonate 28, BUN of 9, creatinine 1.0, and glucose is 87. Calcium is 9.4. Troponin I x2 negative. INR was 1.0. Chest x-ray showed borderline cardiomegaly, no acute cardiopulmonary disease. ASSESSMENT AND PLAN: This is a very unfortunate 63-year-old lady who is seen in Cardiology consultation. 1. Chest pain. Given history of hypertension, we would like to proceed with Lexiscan and a stress myocardial perfusion imaging study to rule out obstructive CAD. Further therapeutic and diagnostic decision will be based on the results of the above tests. 2. History of paroxysmal atrial fibrillation. On Eliquis. Currently, in sinus rhythm. Her rate is controlled with metoprolol succinate, low dose. 3. History of diastolic congestive heart failure. Echocardiography in this admission does not show hypertensive heart disease mainly with no evidence of heart failure. I would like to thank, Dr. Mtz, for allowing me to participate in the care of this patient. Francisco Hanson M.D. DR: RAQUEL JOB#: [id number] CC:
--- NOTE | 2018-09-25 12:20 | Discharge Summary ---
Discharge Summary Discharge Summary _ DATE OF ADMISSION: 09/22/2018 DATE OF DISCHARGE: 09/24/2018 DISCHARGED BY: Dr. Elder Mtz CONSULTANTS: Dr. Francisco Cates BRIEF HOSPITAL COURSE: Patient is a 63-year-old female, who presented to ED for complaints of chest pain, substernal, sharp, intermittent that started 2 days prior. She also reported a fall on an uneven area of the sidewalk. She fell and twisted her ankle. She then presented to ED for further evaluation. She has medical history significant for hypertension, DJD and sciatica. On evaluation at ED, blood pressure was 135/98, pulse rate 53. At work did not show any leukocytosis, hemoglobin and hematocrit were stable. Electrolytes were normal. Kidney function normal. Initial troponin was negative. She had EKG that showed normal sinus rhythm with no acute changes. Chest x-ray showed borderline cardiomegaly with no acute process. X-ray of the left ankle was negative for acute fractures or dislocation. Due to her risk factors, she was admitted for evaluation of ACS. She was admitted to monitored floor. Cardiac enzymes were monitored. She was given aspirin. Lipid panel was checked. Echocardiogram done showed ejection fraction of 60-65%, mild left ventricular hypertrophy, grade 1 LV diastolic dysfunction. Her right ventricular systolic pressure was measured at 40 mmHg. She also showed mild mitral regurgitation. There was no evidence of heart failure. Patient has a history of paroxysmal atrial fibrillation. She was continued on Eliquis. She was given low-dose metoprolol. Orthopedic evaluation was done. Left ankle did not show any fractures or dislocation. Patient presented with left leg sprain, possible peroneal tendon. She was recommended cryotherapy, compression wrap, weightbearing as tolerated. She was advised if issues persist, to follow-up and consideration for ankle lace up brace for more support would be reasonable. Cardiac enzymes negative. She underwent Lexiscan stress testing. Results were nonischemic. She was discharged home. FINAL DIAGNOSES: Chest pain Paroxysmal atrial fibrillation History of diastolic congestive heart failure Accidental fall Left leg sprain, possible peroneal tendons DISPOSITION: [facility] with home health. DISCHARGE INSTRUCTIONS: Follow-up in a week. I have been assigned to complete a discharge summary on this account, I was not involved with the patient's management. Luisana Richardson SHELLF[employer] SORTER Sep 25, 2018 12:20
== END 2018-09-24 17:55 | disposition home health service (06) | DRG 313 ==
LOC: EMR 12:00 → 2E 12:25 → EDBEDREQ 13:42
DX: R07.89 Other chest pain (principal); I50.32 Chronic diastolic (congestive) heart failure; S93.402A Sprain of unspecified ligament of left ankle, initial encounter; I25.10 Atherosclerotic heart disease of native coronary artery without angina pectoris; M19.90 Unspecified osteoarthritis, unspecified site; F17.200 Nicotine dependence, unspecified, uncomplicated; M54.30 Sciatica, unspecified side; I48.0 Paroxysmal atrial fibrillation; I27.20 Pulmonary hypertension, unspecified; I11.0 Hypertensive heart disease with heart failure; Z79.01 Long term (current) use of anticoagulants; W19.XXXA Unspecified fall, initial encounter; Y92.480 Sidewalk as the place of occurrence of the external cause
CPT/HCPCS: 36415; 71045; 78452; 80048; 80053; 80061; 82550; 82553; 84443; 84484; 85007; 85025; 85610; 85730; 86140; 93005; 93017; 93306; 94664; 99285; J2785